=== PATIENT | female | born 1950 | race Caucasian/White ===

== ENCOUNTER 2017-02-17 16:38 | Outpatient (CLI) | payer BC | END 2017-02-17 16:39 | disposition home or self-care (01) | DX: M16.11 Unilateral primary osteoarthritis, right hip (principal) ==

== ENCOUNTER 2017-03-14 08:44 | Outpatient (CLI) | payer BC ==
--- NOTE | 2017-03-17 16:01 | Mammography Report ---
DIGITAL SCREENING MAMMOGRAM: 03/14/2017 CLINICAL INDICATION: A 66-year-old nulliparous patient, for screening. COMPARISON: 11/2015, 11/2013, 08/2012, 01/2010, 11/2008, 10/2007. TECHNIQUE: Routine CC and MLO projections were obtained of the breasts. FINDINGS: The breasts again demonstrate heterogeneously dense fibroglandular parenchyma bilaterally. In the left inner anterior retroareolar breast, there is a possible developing density. Further eval uation with spot compression views and possible ultrasound is recommended. No mammographically suspic ious findings are appreciated in the right breast. IMPRESSION: INCOMPLETE EXAMINATION. RECOMMENDATION: ADDITIONAL EVALUATION OF THE LEFT BREAST ABOVE. BIRADS CATEGORY 0-INCOMPLETE. STANDARD QUALIFYING STATEMENTS 1. This examination was reviewed with the aid of Computer-Aided Detection (CAD). 2. A negative or benign imaging report should not delay biopsy if clinically suspicious findings are present. Consider surgical consultation if warranted. More than 5% of cancers are not identified by i maging. 3. Dense breasts may obscure an underlying neoplasm. JOB #: [id number] EXT JOB #:[id number]
== END 2017-03-14 08:45 | disposition home or self-care (01) ==
LOC: DI 08:44
PROVIDERS: ATTEND Physician Assistant Medical
DX: Z12.31 Encounter for screening mammogram for malignant neoplasm of breast (principal); R92.8 Other abnormal and inconclusive findings on diagnostic imaging of breast
CPT/HCPCS: 77067

== ENCOUNTER 2017-03-26 13:36 | Outpatient (CLI) | payer BC ==
--- NOTE | 2017-03-26 16:51 | Mammography Report ---
DIGITAL DIAGNOSTIC LEFT MAMMOGRAM: 03/26/2017 CLINICAL INDICATION: A 66-year-old nulliparous patient, possible developing density on screening. TECHNIQUE: Left true lateral and spot compression views. COMPARISON: 03/14/2017, 11/20/2015, 11/15/2013, 08/20/2014, 01/17/2010, 11/15/2008, 11/12/2007. The left breast again demonstrates scattered fibroglandular densities. The density in question, in t he left inner anterior breast, dissipates evenly on additional compression. No underlying mass lesio n or architectural distortion is identified. IMPRESSION: NEGATIVE EXAMINATION. RECOMMENDATION: ROUTINE ANNUAL SCREENING UNLESS OTHERWISE CLINICALLY INDICATED. BIRADS CATEGORY: 1, NEGATIVE. STANDARD QUALIFYING STATEMENTS 1. This examination was reviewed with the aid of Computed-Aided Detection (CAD). 2. A negative or benign imaging report should not delay biopsy if clinically suspicious findings are present. Consider surgical consultation if warranted. More than 5% of cancers are not identified b y imaging. 3. Dense breasts may obscure an underlying neoplasm. JOB #: [id number] EXT JOB #:[id number]
== END 2017-03-26 13:37 | disposition home or self-care (01) ==
LOC: DI 13:36
PROVIDERS: ATTEND Physician Assistant Medical
DX: R92.8 Other abnormal and inconclusive findings on diagnostic imaging of breast (principal)

== ENCOUNTER 2017-06-25 10:56 | Outpatient (CLI) | payer BC ==
[2017-06-25 11:23] LABS: BASOPHILS # (AUTO) 0.1 10^3/uL (0.0-0.1); BASOPHILS % (AUTO) 1.1 %; EOSINOPHILS # (AUTO) 0.1 10^3/uL (0.0-0.7); EOSINOPHILS % (AUTO) 1.7 %; HCT - HEMATOCRIT 39.2 % (37.0-47.0); HGB - HEMOGLOBIN 13.7 g/dL (12.0-16.0); LYMPHOCYTES # (AUTO) 1.3 10^3/uL (1.5-3.5); LYMPHOCYTES % (AUTO) 23.1 %; MEAN CORPUSCULAR HEMOGLOBIN 32.2 pg (27.0-31.0); MEAN CORPUSCULAR HGB CONC 34.8 g/dL (32.0-36.0); MEAN CORPUSCULAR VOLUME 92.6 fL (81.0-99.0); MEAN PLATELET VOLUME 8.9 fL (7.9-10.8); MONOCYTES # (AUTO) 0.5 10^3/uL (0.0-1.0); MONOCYTES % (AUTO) 9.2 %; NEUTROPHILS # (AUTO) 3.5 10^3/uL (1.5-6.6); NEUTROPHILS % (AUTO) 64.9 %; RED BLOOD COUNT 4.23 10^6/uL (4.20-5.40); RED CELL DISTRIBUTION WIDTH 13.3 % (12.0-15.0); UNCORRECTED WHITE BLOOD COUNT 5.4 x10^3/uL; WHITE BLOOD COUNT 5.4 x10^3/uL (4.8-10.8)
[2017-06-25 11:35] LABS: ALBUMIN/GLOBULIN RATIO 1.4 (1.0-2.2); BILIRUBIN,TOTAL 0.7 mg/dL (0.2-1.0); CALCIUM 8.9 mg/dL (8.5-10.3); POTASSIUM 3.7 mmol/L (3.5-5.0); TOTAL PROTEIN 7.3 g/dL (6.7-8.2)
--- NOTE | 2017-06-25 13:48 | XRAY Report ---
TWO-VIEW CHEST: 06/25/2017 CLINICAL INDICATION: Cough, heart murmur. FINDINGS: Frontal and lateral views of the chest demonstrate a normal cardiac silhouette. The lungs are clear. No effusion or pneumothorax is present. IMPRESSION: NORMAL CHEST. JOB #: [id number] EXT JOB #:[id number]
== END 2017-06-25 10:57 | disposition home or self-care (01) ==
LOC: LAB 10:56
PROVIDERS: ATTEND Physician Assistant Medical
DX: R05 Cough (principal); R01.1 Cardiac murmur, unspecified; R00.2 Palpitations
CPT/HCPCS: 36415; 71020; 80053; 84443; 84484; 85025; 93306

== ENCOUNTER 2017-11-12 08:06 | Outpatient (CLI) | payer MEDICARE, OTHER ==
--- NOTE | 2017-11-12 12:19 | CT Report ---
DATE OF SERVICE: 11/12/2017 CT OF SINUSES WITHOUT CONTRAST: 11/12/2017 CLINICAL INDICATION: Acute sinusitis, pressure, pain. TECHNIQUE: Axial CT images of the sinuses were obtained without intravenous contrast, following which sagittal and coronal reconstructions were performed. No previous sinus CT is available for comparison. FINDINGS: There is rightward deviation of the nasal septum. The paranasal sinuses are clear. The ostiomeatal units are patent. No osseous destruction is seen. The visualized intraorbital contents are unremarkable. IMPRESSION: RIGHTWARD DEVIATION OF THE NASAL SEPTUM. NO EVIDENCE OF ACUTE OR CHRONIC SINUS DISEASE. In accordance with CT protocol optimization, one or more of the following dose reduction techniques were utilized for this exam: automated exposure control, adjustment of mA and/or KV based on patient size, or use of iterative reconstructive technique. TD: 11/12/2017 13:18
[2017-11-13] MEDS ORDERED: IOPAMIDOL-300 100 ML VIAL IVP ONE (14:25)
== END 2017-11-12 08:07 | disposition home or self-care (01) ==
LOC: DI 08:06
PROVIDERS: ATTEND Physician Assistant Medical
DX: J34.2 Deviated nasal septum (principal)
CPT/HCPCS: 70486

== ENCOUNTER 2017-11-13 07:27 | Outpatient (CLI) | payer MEDICARE, OTHER ==
[2017-11-13 07:46] LABS: CREATININE 0.7 mg/dL (0.4-1.0)
[2017-11-13] MEDS ORDERED: IOPAMIDOL-300 100 ML VIAL ONE (13:36)
--- NOTE | 2017-11-13 16:11 | CT Report ---
DATE OF SERVICE: 11/13/2017 CT BRAIN WITH AND WITHOUT CONTRAST: 11/13/2017 CLINICAL INDICATION: Headache for several weeks. COMPARISON: CT head without contrast 01/11/2007, CT sinuses 11/12/2017. TECHNIQUE: Axial CT images of the brain were obtained prior to and following 80 mL Isovue 300 intravenously. In accordance with CT protocol optimization, one or more of the following dose reduction techniques were utilized for this exam: Automated exposure control, adjustment of mA and/or KV based on patient size, or use of iterative reconstructive technique. FINDINGS: The ventricles and sulci are normal in size, shape and configuration. The basilar cisterns are patent. There is no evidence of hemorrhage, mass effect, or midline shift. No abnormal enhancement is seen. The visualized orbital contents and paranasal sinuses are unremarkable. IMPRESSION: NORMAL CT OF THE BRAIN WITH AND WITHOUT CONTRAST. TD: 11/13/2017 16:10
== END 2017-11-13 07:28 | disposition home or self-care (01) ==
LOC: LAB 07:27 → DI 07:28
PROVIDERS: ATTEND Physician Assistant Medical
DX: R51 Headache (principal); Z79.899 Other long term (current) drug therapy
CPT/HCPCS: 36415; 70470; 82565; 84520; Q9967

== ENCOUNTER 2018-04-29 09:47 | Outpatient (CLI) | payer MEDICARE, OTHER ==
[2018-04-29 10:38] LABS: BASOPHILS # (AUTO) 0.1 10^3/uL (0.0-0.1); BASOPHILS % (AUTO) 1.1 %; EOSINOPHILS # (AUTO) 0.1 10^3/uL (0.0-0.7); LYMPHOCYTES # (AUTO) 1.1 10^3/uL (1.5-3.5); MEAN CORPUSCULAR HEMOGLOBIN 32.9 pg (27.0-31.0); MEAN CORPUSCULAR HGB CONC 34.1 g/dL (32.0-36.0); MEAN CORPUSCULAR VOLUME 96.3 fL (81.0-99.0); MEAN PLATELET VOLUME 8.9 fL (7.9-10.8); MONOCYTES # (AUTO) 0.5 10^3/uL (0.0-1.0); MONOCYTES % (AUTO) 9.2 %; NEUTROPHILS # (AUTO) 3.5 10^3/uL (1.5-6.6); NEUTROPHILS % (AUTO) 66.7 %; PLT - PLATELET COUNT 211 10^3/uL (130-450); RED BLOOD COUNT 4.56 10^6/uL (4.20-5.40); WHITE BLOOD COUNT 5.2 x10^3/uL (4.8-10.8)
[2018-04-29 11:02] LABS: ALBUMIN 3.9 g/dL (3.2-5.5); ALBUMIN/GLOBULIN RATIO 1.2 (1.0-2.2); ALKALINE PHOSPHATASE 81 IU/L (42-121); ALT ALANINE AMINOTRANSFERASE 29 IU/L (10-60); AST ASPARTATE AMINOTRANSFERASE 30 IU/L (10-42); BILIRUBIN,TOTAL 1.1 mg/dL (0.2-1.0); BUN - BLOOD UREA NITROGEN 8 mg/dL (6-20); CALCIUM 8.9 mg/dL (8.5-10.3); CARBON DIOXIDE - CO2 26 mmol/L (21-32); CHLORIDE 102 mmol/L (101-111); CHOL/HDL RATIO 4.1 (<4.4); CHOLESTEROL 258 mg/dL; CREATININE 0.7 mg/dL (0.4-1.0); GFR - MDRD 84 (>89); GLUCOSE 99 mg/dL (70-100); HDL CHOLESTEROL 63 mg/dL; LDL CHOLESTEROL,CALCULATED 176 mg/dL; LDL/HDL RATIO 2.8 (<4.4); SODIUM 137 mmol/L (135-145); TOTAL PROTEIN 7.1 g/dL (6.7-8.2); VLDL CHOLESTEROL 19 mg/dL
[2018-04-30 15:32] LABS: HEPATITIS C ANTIBODY NON-REACTIVE (NON-REACTIVE)
== END 2018-04-29 09:48 | disposition home or self-care (01) ==
LOC: LAB 09:47
PROVIDERS: ATTEND Physician Assistant Medical
DX: Z00.00 Encounter for general adult medical examination without abnormal findings (principal); R19.7 Diarrhea, unspecified; Z79.899 Other long term (current) drug therapy; N39.0 Urinary tract infection, site not specified; Z13.818 Encounter for screening for other digestive system disorders; Z72.89 Other problems related to lifestyle; E03.9 Hypothyroidism, unspecified; E78.2 Mixed hyperlipidemia
CPT/HCPCS: 36415; 80053; 80061; 83721; 84443; 85025; 86803; 87077; 87086; 87181

== ENCOUNTER 2018-05-01 08:00 | Outpatient (CLI) | payer MEDICARE, OTHER | END 2018-05-01 08:01 | disposition home or self-care (01) | LOC: LAB.R 08:00 | PROVIDERS: ATTEND Physician Assistant Medical | DX: R19.7 Diarrhea, unspecified (principal) | CPT/HCPCS: 81599; 82705; 83630; 87045; 87046; 87177; 87209; 87493 ==

== ENCOUNTER 2018-05-12 14:47 | Outpatient (CLI) | payer MEDICARE, OTHER ==
[2018-05-12] MEDS ORDERED: IOPAMIDOL-300 50 ML VIAL ONE (15:06)
[2018-05-12] MEDS ORDERED: IOPAMIDOL-300 100 ML VIAL ONE (15:06)
[2018-05-12] MEDS ORDERED: IOPAMIDOL-300 50 ML VIAL PO ONE (16:59)
[2018-05-12] MEDS ORDERED: IOPAMIDOL-300 100 ML VIAL IVP ONE (16:59)
--- NOTE | 2018-05-13 11:43 | CT Report ---
Procedure Date: 05/12/2018 Accession Number: [id number] / [id number] Procedure: CT - Abdomen/Pelvis W/ CPT Code: FULL RESULT: EXAM: Abdomen/Pelvis W/ DATE: 05/12/2018 4:38 PM CLINICAL HISTORY: DIARRHEA,ACUTE COMPARISON: None. TECHNIQUE: Routine helical CT imaging was performed through the abdomen and pelvis. IV contrast: 100 mL Isovue 300. Enteric contrast: Yes. Reconstructions: Coronal and sagittal. In accordance with CT protocol optimization, one or more of the following dose reduction techniques were utilized for this exam: automated exposure control, adjustment of mA and/or KV based on patient size, or use of iterative reconstructive technique. FINDINGS: Lung Bases: Dependent changes. Liver: Normal. No masses. Gallbladder/Bile Ducts: Status post cholecystectomy. Spleen: Normal. Pancreas: Normal. Adrenal Glands: Normal. Kidneys: Normal. No masses or hydronephrosis. Peritoneal Cavity/Bowel: No free fluid, free air or adenopathy. No masses or acute inflammatory process. The appendix is well visualized and normal. Specifically, there is diverticulosis without evidence of diverticulitis and no focal colonic or small bowel wall thickening to suggest colitis or ileitis. Pelvic Organs: Normal. The bladder and visualized pelvic organs are within normal limits. Vasculature: Atherosclerotic aorta without aneurysm. Bones: No aggressive osseous structures Other: None. IMPRESSION: No acute abnormality in the abdomen or pelvis. RADIA
== END 2018-05-12 14:48 | disposition home or self-care (01) ==
LOC: DI 14:47
PROVIDERS: ATTEND Physician Assistant Medical
DX: R19.7 Diarrhea, unspecified (principal)
CPT/HCPCS: 74177; Q9967

== ENCOUNTER 2018-05-18 08:00 | Outpatient (CLI) | payer MEDICARE, OTHER | END 2018-05-18 08:01 | disposition home or self-care (01) | LOC: LAB.R 08:00 | PROVIDERS: ATTEND Internal Medicine Gastroenterology | DX: R19.7 Diarrhea, unspecified (principal); K90.9 Intestinal malabsorption, unspecified | CPT/HCPCS: 81599; 82710 ==

== ENCOUNTER 2018-11-05 08:00 | Outpatient (CLI) | payer MEDICARE, OTHER ==
[2018-11-05 14:40] LABS: ALBUMIN 4.5 g/dL (3.2-5.5); ALBUMIN/GLOBULIN RATIO 1.4 (1.0-2.2); BILIRUBIN,TOTAL 1.4 mg/dL (0.2-1.0); CALCIUM 9.6 mg/dL (8.5-10.3); CREATININE 0.7 mg/dL (0.4-1.0); TOTAL PROTEIN 7.7 g/dL (6.7-8.2)
[2018-11-05 15:31] LABS: BILIRUBIN,URINE NEGATIVE (NEGATIVE); GLUCOSE, URINE (UA) NEGATIVE (NEGATIVE); KETONES,URINE (UA) NEGATIVE (NEGATIVE); LEUKOCYTE ESTERASE, URINE NEGATIVE (NEGATIVE); NITRITE,URINE NEGATIVE (NEGATIVE); OCCULT BLOOD,URINE NEGATIVE (NEGATIVE); PROTEIN,URINE NEGATIVE (NEGATIVE); UROBILINOGEN,URINE 0.2 (NORMAL) E.U./dL (NORMAL)
[2018-11-05 15:54] LABS: BACTERIA,URINE None Seen /HPF (None Seen); CLARITY,URINE CLEAR (CLEAR); RBC,URINE 0-5 /HPF (0-5); SQUAMOUS EPITHELIAL CELL,UR MOD Squamous (<= Few)
== END 2018-11-05 23:59 | disposition home or self-care (01) ==
LOC: LAB.R 08:00
PROVIDERS: ATTEND Physician Assistant Medical
DX: I10 Essential (primary) hypertension (principal); Z79.899 Other long term (current) drug therapy
CPT/HCPCS: 80053; 81001; 84443; 87086

== ENCOUNTER 2019-01-29 11:49 | Emergency (ER) | payer MEDICARE, OTHER ==
--- NOTE | 2019-01-29 12:18 | ED Physician Documentation ---
PD HPI URI - Stated complaint Stated Complaint: SOA - Chief complaint Chief Complaint: Resp - History obtained from History obtained from: Patient - History of Present Illness Timing - onset: How many weeks ago (3-4) Timing duration: Weeks (3-4) Timing details: Gradual onset, Waxing and waning (She has had runny nose and congestion as well as some coughing and wheezing for 3-4 weeks since the tree started blooming. She does have history of some hayfever. She is also had an increasingly worse cough keeping her up at night. It is productive of slightly of clear to whitish sputum. There is no blood in her sputum. She has not had any fever or chills. That has been increasingly worse over the last few weeks as well.) Similar symptoms before: Has not had sx before (She has had environmental allergies in the past but not to this degree and her cough is the predominant symptom that she has not had in the past.) Recently seen: Clinic (started new BP med Lisinopril 2 months ago. Seen couple weeks ago with cough and congestion and Rx QVar and Albuterol.) Review of Systems Constitutional: denies: Fever, Chills Nose: reports: Congestion, Sinus pressure / pain. denies: Rhinorrhea / runny nose Throat: denies: Sore throat Cardiac: denies: Chest pain / pressure Respiratory: reports: Cough. denies: Dyspnea, Wheezing GI: denies: Abdominal Pain, Nausea, Vomiting, Diarrhea Skin: denies: Rash, Lesions Psychiatric: reports: Insomnia (not insomnia per se but very poor sleep for past 2 weeks due to persistent cough keeping her away or awakening her often.) PD PAST MEDICAL HISTORY - Past Medical History Past Medical History: Yes Cardiovascular: Hypertension Endocrine/Autoimmune: HyPOthyroidism Musculoskeletal: Osteoarthritis - Past Surgical History Past Surgical History: Yes General: Cholecystectomy - Present Medications Home Medications: Ambulatory Orders Medication Instructions Recorded Confirmed Benzonatate [Tessalon Perle] 100 - 200 mg PO TID PRN #30 capsule 01/29/19 Cetirizine [ZyrTEC] 10 mg PO DAILY #30 tablet 01/29/19 Dexamethasone [Decadron] 4 mg PO DAILY #5 tablet 01/29/19 Losartan Potassium 50 mg PO DAILY #30 tablet 01/29/19 guaiFENesin/CODEINE [Robitussin AC] 10 ml PO Q6H PRN #240 ml 01/29/19 - Allergies Allergies/Adverse Reactions: Allergies Allergy/AdvReac Type Severity Reaction Status Date / Time Sulfa (Sulfonamide Allergy Unknown Verified 01/29/19 11:59 Antibiotics) - Social History Does the pt smoke?: No Smoking Status: Former smoker Does the pt drink ETOH?: Yes Does the pt have substance abuse?: No PD ED PE NORMAL - Vitals Vital signs reviewed: Yes - General General: Alert and oriented X 3, Well developed/nourished - HEENT HEENT: Moist mucous membranes, Pharynx benign - Neck Neck: Supple, no meningeal sign, No adenopathy - Cardiac Cardiac: RRR, No murmur - Respiratory Respiratory: Clear bilaterally, Other (repetitive cough without barking nor harsh sounds. It is forceful cough. ) - Abdomen Abdomen: Soft, Non tender - Back Back: No CVA TTP - Derm Derm: Normal color, Warm and dry - Extremities Extremities: No deformity, No tenderness to palpate, Normal ROM s pain, No edema, No calf tenderness / cord - Neuro Neuro: Alert and oriented X 3, No motor deficit, Normal speech Results - Vitals Vitals: Vital Signs - 24 hr 01/29/19 01/29/19 11:53 12:59 Temperature 35.9 C L Heart Rate 72 72 Respiratory 22 18 Rate Blood Pressure 167/87 H 166/67 H O2 Saturation 100 97 Oxygen O2 Source Room air PD MEDICAL DECISION MAKING - ED course Complexity details: considered differential (Allergies for the congesiton. ? if cough is the same, or consider side effect of the Lisinopril that she started a month prior to the cough onset and progression. ), d/w patient Departure - Departure Disposition: 01 Home, Self Care Clinical Impression: Environmental allergies, Persistent cough Condition: Stable Record reviewed to determine appropriate education?: Yes Follow-Up: Pieter Flores MD [Primary Care Provider] - [facility] [Provider Group] Prescriptions: Benzonatate [Tessalon Perle] 100 - 200 mg PO TID PRN #30 capsule PRN Reason: Cough Cetirizine [ZyrTEC] 10 mg PO DAILY #30 tablet Dexamethasone [Decadron] 4 mg PO DAILY #5 tablet guaiFENesin/CODEINE [Robitussin AC] 10 ml PO Q6H PRN #240 ml PRN Reason: Cough Losartan Potassium 50 mg PO DAILY #30 tablet Comments: For your allergy symptoms, I would suggest cetirizine antihistamine daily. I looked up the Zicam and that is not really an antihistamine and is mostly homeopathic. You can still continue it. I would use the Decadron steroid orally for the next 5 days to decrease inflammation through the bronchials. Use your albuterol inhaler 2 puffs 4 times a day and extra times as needed. For the cough, use Tessalon for cough suppression and add codeine cough medicine if needed. I wonder if the cough itself might relate to a side effect of your lisinopril. Discontinue that and change to losartan for blood pressure instead. This is similar blood pressure medicine of a different category with very low side effects like lisinopril. Follow-up with your primary care next week as planned. You could also follow-up with ENT regarding allergy testing. Discharge Date/Time: 01/29/19 13:24
[2019-01-29] MEDS ORDERED: BENZONATATE 100 MG CAPSULE PO STA (12:42)
[2019-01-29] MEDS ORDERED: CHERRY SYRUP 10 ML UDC PO ONE (12:42)
[2019-01-29] MEDS ORDERED: DEXAMETHASONE 10 MG/ML VIAL PO STA (12:42)
[2019-01-29 13:00] VITALS: BP 166/67
== END 2019-01-29 13:24 | disposition home or self-care (01) ==
LOC: ED 11:49
DX: J30.1 Allergic rhinitis due to pollen (principal); I10 Essential (primary) hypertension; Z87.891 Personal history of nicotine dependence
CPT/HCPCS: 99283; A9270

== ENCOUNTER 2019-09-02 08:12 | Outpatient (CLI) | payer MEDICARE, OTHER ==
[2019-09-02 08:35] LABS: BASOPHILS # (AUTO) 0.1 10^3/uL (0.0-0.1); EOSINOPHILS # (AUTO) 0.1 10^3/uL (0.0-0.7); EOSINOPHILS % (AUTO) 2.2 %; HGB - HEMOGLOBIN 14.8 g/dL (12.0-16.0); LYMPHOCYTES # (AUTO) 1.2 10^3/uL (1.5-3.5); LYMPHOCYTES % (AUTO) 25.3 %; MEAN CORPUSCULAR HEMOGLOBIN 34.7 pg (27.0-31.0); MEAN CORPUSCULAR HGB CONC 34.6 g/dL (32.0-36.0); MEAN CORPUSCULAR VOLUME 100.2 fL (81.0-99.0); MEAN PLATELET VOLUME 10.2 fL (7.9-10.8); MONOCYTES # (AUTO) 0.5 10^3/uL (0.0-1.0); NEUTROPHILS % (AUTO) 60.1 %; PLT - PLATELET COUNT 209 10^3/uL (130-450); RED BLOOD COUNT 4.27 10^6/uL (4.20-5.40); WHITE BLOOD COUNT 4.9 x10^3/uL (4.8-10.8)
[2019-09-02 08:50] LABS: ALBUMIN 4.6 g/dL (3.2-5.5); ALBUMIN/GLOBULIN RATIO 1.4 (1.0-2.2); ALKALINE PHOSPHATASE 72 IU/L (42-121); ALT ALANINE AMINOTRANSFERASE 27 IU/L (10-60); AST ASPARTATE AMINOTRANSFERASE 30 IU/L (10-42); BUN - BLOOD UREA NITROGEN 15 mg/dL (6-20); CALCIUM 9.3 mg/dL (8.5-10.3); CARBON DIOXIDE - CO2 28 mmol/L (21-32); CHLORIDE 99 mmol/L (101-111); CHOL/HDL RATIO 3.7 (<4.4); CHOLESTEROL 326 mg/dL; CREATININE 0.8 mg/dL (0.4-1.0); GFR - MDRD 72 (>89); GLUCOSE 103 mg/dL (70-100); HDL CHOLESTEROL 88 mg/dL; LDL CHOLESTEROL,CALCULATED 220 mg/dL; LDL/HDL RATIO 2.5 (<4.4); SODIUM 138 mmol/L (135-145); TOTAL PROTEIN 7.8 g/dL (6.7-8.2); VLDL CHOLESTEROL 18 mg/dL
[2019-09-02 09:06] LABS: HB2 TOTAL 14.9 g/dL; HEMOGLOBIN A1C 0.53 g/dL; HEMOGLOBIN A1C % 5.4 % (4.6-6.2)
[2019-09-02 09:37] LABS: THYROID STIMULATING HORMONE 4.31 uIU/mL (0.34-5.60)
[2019-09-02 09:39] LABS: FREE T4 (FREE THYROXINE) 0.86 ng/dL (0.58-1.64)
== END 2019-09-02 08:13 | disposition home or self-care (01) ==
LOC: LAB 08:12
PROVIDERS: ATTEND Family Medicine
DX: N95.1 Menopausal and female climacteric states (principal); I10 Essential (primary) hypertension; Z79.899 Other long term (current) drug therapy; E03.9 Hypothyroidism, unspecified
CPT/HCPCS: 36415; 80053; 80061; 82670; 83036; 83721; 84439; 84443; 84481; 85025

== ENCOUNTER 2019-09-10 12:30 | Outpatient (CLI) | payer MEDICARE, OTHER ==
--- NOTE | 2019-09-13 08:23 | Mammography Report ---
Reason: ROUTINE MAMMO Procedure Date: 09/10/2019 Accession Number: [id number] / [id number] Procedure: MGN - Screening Mammo Dig Bilat CPT Code: Final Report FULL RESULT: EXAM: Screening Mammo Dig Bilat DATE: 09/10/2019 12:48 PM CLINICAL HISTORY: The patient is an asymptomatic 69-year-old female. Nulliparous. No family history breast cancer. TECHNIQUE: (B) - Bilateral CC and MLO views were obtained. COMPARISON: 03/14/2017, 11/20/2015 and 11/15/2013 PARENCHYMAL PATTERN: (D) - The breasts demonstrate heterogeneously dense fibroglandular parenchyma bilaterally. FINDINGS: The pattern of asymmetry is stable given positional variation. There are no suspicious masses, calcifications, or areas of distortion. IMPRESSION: Negative examination. BI-RADS category 1. RECOMMENDATION: (ANNUAL) - Recommend routine annual screening mammography. BI-RADS CATEGORY: (1) - Negative. STANDARD QUALIFYING STATEMENTS: 1. This examination was not reviewed with the aid of Computer-Aided Detection (CAD). 2. A negative or benign imaging report should not preclude biopsy if clinically suspicious findings are present. 3. Dense breasts may obscure an underlying neoplasm.
== END 2019-09-10 12:31 | disposition home or self-care (01) ==
LOC: DI.N 12:30
PROVIDERS: ATTEND Family Medicine
DX: Z12.31 Encounter for screening mammogram for malignant neoplasm of breast (principal)
CPT/HCPCS: 77067

== ENCOUNTER 2019-12-16 15:46 | Outpatient (CLI) | payer MEDICARE, OTHER ==
[2019-12-16 16:34] LABS: CHOL/HDL RATIO 3.8 (<4.4); CHOLESTEROL 319 mg/dL; HDL CHOLESTEROL 85 mg/dL; LDL CHOLESTEROL,CALCULATED 218 mg/dL; LDL/HDL RATIO 2.6 (<4.4); VLDL CHOLESTEROL 16 mg/dL
== END 2019-12-16 15:47 | disposition home or self-care (01) ==
LOC: LAB 15:46
PROVIDERS: ATTEND Family Medicine
DX: E78.2 Mixed hyperlipidemia (principal)
CPT/HCPCS: 36415; 80061; 83721

== ENCOUNTER 2020-04-10 14:57 | Outpatient (CLI) | payer MEDICARE, OTHER ==
--- NOTE | 2020-04-10 16:03 | XRAY Report ---
PROCEDURE: Cervical Spine w/Flex/Ext INDICATIONS: CERVICALGIA,DORSALGIA TECHNIQUE: 7 views of the cervical spine were acquired. COMPARISON: None. FINDINGS: Bones: No fractures or dislocations to the C7 level. Straightening of the normal lordotic curvature . Diffuse narrowing of the cervical disc spaces, with relative sparing of C2-C3. Scattered multileve l endplate spurring and diffuse facet arthropathy. There is 2-3 mm of retrolisthesis of C3 on C4, C4 on C5, and C5 on C6 with lateral extension view. Th is appears to reduce with neutral and flexion views. On the left, multilevel moderate bony foraminal narrowing at C4-C5, C5-C6 and C6-C7. On the right, there is mild C3-C4 bony foraminal narrowing. Soft tissues: Prevertebral soft tissues are normal in thickness. Scattered carotid atherosclerotic c alcified plaque. IMPRESSION: Multilevel cervical spondylosis and facet arthropathy. Suggestion of motion at the C3-C4, C4-C5 and C5-C6 levels as detailed above with lateral extension an d flexion views raise the possibility of instability. Bilateral bony foraminal stenoses as above. Reviewed by: Cisco Beltrán MD on 04/10/2020 4:01 PM PDT Approved by: Cisco Beltrán MD on 04/10/2020 4:01 PM PDT Station ID: [id number]
--- NOTE | 2020-04-10 16:05 | XRAY Report ---
PROCEDURE: Thoracic Spine 3 View INDICATIONS: CERVICALGIA,DORSALGIA TECHNIQUE: 3 views of the thoracic spine were acquired. COMPARISON: None. FINDINGS: Bones: No fractures or dislocations. No suspicious bony lesions. Discogenic changes. Levoscoliosis centered at the T5 level. Scattered multilevel endplate spurring and diffuse facet arthropathy. Soft tissues: No paravertebral stripe thickening. IMPRESSION: Levoscoliosis of the upper thoracic spine Diffuse thoracic spondylosis and facet disease. No fracture Reviewed by: Cisco Beltrán MD on 04/10/2020 4:03 PM PDT Approved by: Cisco Beltrán MD on 04/10/2020 4:03 PM PDT Station ID: [id number]
== END 2020-04-10 14:58 | disposition home or self-care (01) ==
LOC: DI 14:57
PROVIDERS: ATTEND Family Medicine
DX: M47.812 Spondylosis without myelopathy or radiculopathy, cervical region (principal); M48.02 Spinal stenosis, cervical region; M47.814 Spondylosis without myelopathy or radiculopathy, thoracic region; M41.84 Other forms of scoliosis, thoracic region
CPT/HCPCS: 72052; 72072

== ENCOUNTER 2020-07-03 15:50 | Outpatient (CLI) | payer MEDICARE, OTHER ==
--- NOTE | 2020-07-03 18:00 | MRI Report ---
PROCEDURE: Cervical Spine W/O INDICATIONS: DORSALGIA,CERVICALGIA TECHNIQUE: Noncontrast sagittal T1 spin echo and T2 fast spin echo, sagittal STIR, foraminal oblique sagittal T2 fast spin echo, and axial gradient echo or T2 fast spin echo through the cervical spine. COMPARISON: Correlation is made with the accompanying thoracic spine MRI 07/03/2020. Correlation is m gui with prior cervical spine plain films, 04/10/2020 FINDINGS: Image quality: Motion artifact is noted. Alignment and Curvature: There is overall straightening of the normal cervical lordosis. No signifi cant AP alignment abnormality can be seen. Bone Marrow: Marrow demonstrates normal overall signal. Spinal Cord: Visualized spinal cord has normal size and signal. No cerebellar tonsillar herniation. Paraspinous Soft Tissues: No paravertebral masses. Prevertebral soft tissues are normal in thicknes s. C2-C3: The disc height is well-preserved. There is loss of disc signal seen. Mild disc osteophyte complex is seen. There is a mild central disc protrusion. There is mild to moderate left-sided and no significant right-sided facet hypertrophy seen. There is at least moderate left-sided and mild ri ght-sided neuroforaminal narrowing seen. Mild central canal narrowing is seen. C3-C4: Mild to moderate loss of disc height and disc signal can be seen. Moderate disc osteophyte c omplex is seen, with a central/left disc osteophyte protrusion. Moderate facet hypertrophy is seen. There is moderate to severe bilateral neuroforaminal narrowing seen, left worse than right. Modera te central canal narrowing is seen. Associated mass effect is seen upon the ventral spinal cord. C4-C5: Moderate to severe loss of disc height and disc signal can be seen. Moderate disc osteophyte complex is seen, with a central disc osteophyte protrusion. Uncovertebral joint hypertrophy is seen at this level. Mild to moderate facet hypertrophy is seen. There is moderate to severe bilateral ne uroforaminal narrowing seen, left worse than right. Moderate central canal narrowing is seen. Asso ciated mass effect is seen upon the ventral spinal cord. C5-C6: Moderate to severe loss of disc height and disc signal can be seen. Moderate disc osteophyte complex is seen, which is eccentric to the left. There is a central disc osteophyte protrusion, as on series 701 image 15. Uncovertebral joint hypertrophy is seen at this level. Moderate facet hypert rophy is seen. There is moderate to severe bilateral neuroforaminal narrowing seen, left worse than right. Moderate to severe central canal narrowing is seen. Associated mass effect is seen upon the v entral spinal cord. C6-C7: Moderate to severe loss of disc height and disc signal can be seen. At least moderate disc os teophyte complex is seen, with a mild central disc osteophyte protrusion. Mild to moderate facet hype rtrophy is seen at this level. There is moderate to severe bilateral neuroforaminal narrowing seen, l eft worse than right. Moderate central canal narrowing is seen. Associated mass effect is seen upo n the ventral spinal cord. C7-T1: Mild loss of disc height and disc signal are seen. Mild disc osteophyte complex is seen. M ild facet hypertrophy is seen. Mild bilateral neural foraminal narrowing is seen. No significant central canal narrowing is seen. IMPRESSION: Multiple levels of relatively prominent cervical spine degenerative change are seen, which are overal l most prominent at the C5-C6 level. Reviewed by: Nestor Bowling MD on 07/03/2020 4:59 PM VIKTORIA Approved by: Nestor Bowling MD on 07/03/2020 4:59 PM VIKTORIA Station ID: [id number]
--- NOTE | 2020-07-03 18:04 | MRI Report ---
PROCEDURE: Thoracic Spine W/O INDICATIONS: DORSALGIA,CERVICALGIA TECHNIQUE: Noncontrast sagittal T1 spine echo and T2 fast spin echo, sagittal STIR, axial T1 and T2 fast spin ec ho through the thoracic spine. COMPARISON: Correlation is made with the accompanying cervical spine MRI 07/03/2020. Correlation is a lso made with the prior thoracic spine plain films, 04/10/2020. FINDINGS: Image quality: Motion artifact is noted. Alignment and Curvature: There is accentuated thoracic kyphosis. No significant AP alignment abn ormality can be seen. Bone Marrow: Marrow is of normal overall signal. No acute vertebral body compression fractures. Spinal Cord: Visualized spinal cord is normal in size and signal. Paraspinous Soft Tissues: No paravertebral masses. Miscellaneous: Scattered levels of mild disc space narrowing can be seen, with associated endplate ir regularity. Several levels of bridging anterior osteophytes can be seen, which are more prominent on the right side than on the left. No significant neuroforaminal or central canal narrowing can be seen within the thoracic spine. Portions of the lumbar spine are included on the study and there is a central/right disc extrusion no yohana at the L1-L2 level, as seen on series 901 image 2 and on series 602 image 9. Moderate associated central canal narrowing can be seen. IMPRESSION: Age-appropriate generalized thoracic spine degenerative changes are seen. At the L1-L2 level, there is a central/right disc extrusion seen, with moderate central canal narrowi ng. If it would be helpful for clinical management decision making, please consider a dedicated lumba r spine MRI for further evaluation. Reviewed by: Nestor Bowling MD on 07/03/2020 5:03 PM VIKTORIA Approved by: Nestor Bowling MD on 07/03/2020 5:03 PM VIKTORIA Station ID: [id number]
== END 2020-07-03 15:51 | disposition home or self-care (01) ==
LOC: DI 15:50
PROVIDERS: ATTEND Family Medicine
DX: M50.21 Other cervical disc displacement, high cervical region (principal); M47.812 Spondylosis without myelopathy or radiculopathy, cervical region; M48.02 Spinal stenosis, cervical region; M51.34 Other intervertebral disc degeneration, thoracic region; M47.814 Spondylosis without myelopathy or radiculopathy, thoracic region; M51.26 Other intervertebral disc displacement, lumbar region; M48.061 Spinal stenosis, lumbar region without neurogenic claudication
CPT/HCPCS: 72141; 72146

== ENCOUNTER 2020-11-21 12:28 | Outpatient (CLI) | payer MEDICARE, OTHER ==
--- NOTE | 2020-11-22 12:29 | Mammography Report ---
BILATERAL DIGITAL SCREENING MAMMOGRAM 3D/2D: 11/21/2020 CLINICAL: Routine screening. Comparison is made to exams dated: 09/10/2019 mammogram, 03/26/2017 mammogram, and 03/14/2017 mammogram - [facility]. The tissue of both breasts is heterogeneously dense. This may lower the sensitivity of mammography. No significant masses, calcifications, or other findings are seen in either breast. There has been no significant interval change. IMPRESSION: NEGATIVE There is no mammographic evidence of malignancy. A 1 year screening mammogram is recommended. This exam was interpreted at Station ID: [id number]. NOTE: For mammograms, a report in lay terms will be sent to the patient. Approximately 15% of breast malignancies will not be visualized mammographically. In the management of a palpable breast mass, a negative mammogram must not discourage biopsy of a clinically suspicious lesion. Electronically Signed By: Sarai roland/emily:11/21/2020 17:04:01 ACR BI-RADS Category 1: Negative 3341F PARENCHYMAL PATTERN: (D) - The breast(s) demonstrate(s) heterogeneously dense fibroglandular ivanna hunt. BI-RADS CATEGORY: (1) - 1 RECOMMENDATION: (ANNUAL) - Recommend routine annual screening mammography. [id number] 1 year screening LATERALITY: (B)
== END 2020-11-21 12:29 | disposition home or self-care (01) ==
LOC: DI.N 12:28
DX: Z12.31 Encounter for screening mammogram for malignant neoplasm of breast (principal)

== ENCOUNTER 2021-01-01 10:54 | Outpatient (CLI) | payer MEDICARE, OTHER ==
[2021-01-01] MEDS ORDERED: IOPAMIDOL-300 50 ML VIAL ONE (11:29)
[2021-01-01] MEDS ORDERED: IOVERSOL 320 100 ML VIAL IVP ONE ×2 (11:29→13:30)
[2021-01-01 11:30] LABS: BASOPHILS % (AUTO) 0.6 %; EOSINOPHILS # (AUTO) 0.1 10^3/uL (0.0-0.7); EOSINOPHILS % (AUTO) 1.9 %; HCT - HEMATOCRIT 46.3 % (37.0-47.0); HGB - HEMOGLOBIN 15.6 g/dL (12.0-16.0); LYMPHOCYTES # (AUTO) 1.2 10^3/uL (1.5-3.5); LYMPHOCYTES % (AUTO) 17.5 %; MEAN CORPUSCULAR HEMOGLOBIN 33.5 pg (27.0-31.0); MEAN CORPUSCULAR HGB CONC 33.7 g/dL (32.0-36.0); MEAN CORPUSCULAR VOLUME 99.6 fL (81.0-99.0); MEAN PLATELET VOLUME 10.9 fL (7.9-10.8); MONOCYTES # (AUTO) 0.6 10^3/uL (0.0-1.0); MONOCYTES % (AUTO) 9.3 %; NEUTROPHILS # (AUTO) 4.8 10^3/uL (1.5-6.6); NEUTROPHILS % (AUTO) 70.4 %; PLT - PLATELET COUNT 205 10^3/uL (130-450); RED BLOOD COUNT 4.65 10^6/uL (4.20-5.40); RED CELL DISTRIBUTION WIDTH 11.8 % (12.0-15.0); WHITE BLOOD COUNT 6.9 x10^3/uL (4.8-10.8)
[2021-01-01 11:41] LABS: ALBUMIN 4.9 g/dL (3.2-5.5); ALBUMIN/GLOBULIN RATIO 1.5 (1.0-2.2); BILIRUBIN,TOTAL 1.3 mg/dL (0.2-1.0); CALCIUM 9.5 mg/dL (8.5-10.3); CREATININE 0.7 mg/dL (0.4-1.0); TOTAL PROTEIN 8.1 g/dL (6.7-8.2)
[2021-01-01 12:10] LABS: THYROID STIMULATING HORMONE 2.78 uIU/mL (0.34-5.60)
--- NOTE | 2021-01-01 12:53 | CT Report ---
PROCEDURE: Abdomen/Pelvis W INDICATIONS: DIARRHEA, IBS CONTRAST: IV CONTRAST: Optiray 320 ml: 100 PO CONTRAST: Isovue 300 ml50 TECHNIQUE: After the administration of intravenous and oral contrast, 5 mm thick sections acquired from the diap hragms to the symphysis. 5 mm thick coronal and sagittal reformats were acquired. For radiation dos e reduction, the following was used: automated exposure control, adjustment of mA and/or kV accordin g to patient size. COMPARISON: 05/12/2018 FINDINGS: Image quality: Excellent. ABDOMEN: Lung bases: Partially calcified 1.3 cm nodule in the right lower lobe is unchanged from 05/12/2018, st atistically benign. Solid organs: Liver and spleen are normal in size and enhancement. Gallbladder has been removed. B iliary system is non dilated. Pancreas enhances normally. No adrenal nodules. Kidneys demonstrate normal size and enhancement, without hydronephrosis. Peritoneum and bowel: Sigmoid diverticulosis. No findings of diverticulitis. Bowel loops demonstrate normal wall thickness and caliber. No free fluid or air. Nodes and vessels: No retroperitoneal or mesenteric adenopathy by size criteria. Aorta and inferior vena cava are normal in size. Miscellaneous: No ventral hernias. PELVIS: Genitourinary: Bladder wall thickness is normal. Miscellaneous: No inguinal hernias or adenopathy. Bones: No suspicious bony lesions. No vertebral body compression fractures. IMPRESSION: No acute finding or otherwise significant abnormality to explain symptoms. Reviewed by: Nehemiah Reynaga MD on 01/01/2021 12:52 PM PDT Approved by: Nehemiah Reynaga MD on 01/01/2021 12:52 PM PDT Station ID: [id number]
[2021-01-01] MEDS ORDERED: IOPAMIDOL-300 50 ML VIAL PO ONE (13:30)
== END 2021-01-01 10:55 | disposition home or self-care (01) ==
LOC: LAB 10:54 → DI 10:55
PROVIDERS: ATTEND Family Medicine
DX: K58.0 Irritable bowel syndrome with diarrhea (principal); I10 Essential (primary) hypertension
CPT/HCPCS: 36415; 74177; 80053; 82533; 83835; 84443; 85025; Q9967

== ENCOUNTER 2021-01-09 10:48 | Outpatient (CLI) | payer MEDICARE, OTHER | END 2021-01-09 10:49 | disposition home or self-care (01) | LOC: DI 10:48 | PROVIDERS: ATTEND Family Medicine | DX: I35.8 Other nonrheumatic aortic valve disorders (principal); I27.20 Pulmonary hypertension, unspecified; I11.9 Hypertensive heart disease without heart failure | CPT/HCPCS: 93306 ==

== ENCOUNTER 2021-02-27 08:00 | Outpatient (CLI) | payer MEDICARE, OTHER ==
[2021-02-27 18:27] LABS: BUN - BLOOD UREA NITROGEN 13 mg/dL (6-20); CALCIUM 9.6 mg/dL (8.5-10.3); CARBON DIOXIDE - CO2 28 mmol/L (21-32); CHLORIDE 99 mmol/L (101-111); CHOL/HDL RATIO 3.5 (<4.4); CHOLESTEROL 321 mg/dL; CREATININE 0.7 mg/dL (0.4-1.0); GFR - MDRD 83 (>89); GLUCOSE 95 mg/dL (70-100); HDL CHOLESTEROL 91 mg/dL; LDL CHOLESTEROL,CALCULATED 205 mg/dL; LDL/HDL RATIO 2.3 (<4.4); POTASSIUM 4.2 mmol/L (3.5-5.0); SODIUM 138 mmol/L (135-145); TRIGLYCERIDES 123 mg/dL; VLDL CHOLESTEROL 25 mg/dL
[2021-02-27 20:16] LABS: ESTIMATED AVERAGE GLUCOSE 100 mg/dL (70-100); HEMOGLOBIN A1c% 5.1 % (4.27-6.07)
== END 2021-02-27 23:59 | disposition home or self-care (01) ==
LOC: LAB.WCP 08:00
PROVIDERS: ATTEND Family Medicine
DX: E78.2 Mixed hyperlipidemia (principal)
CPT/HCPCS: 36415; 80048; 80061; 83036; 83721

== ENCOUNTER 2021-03-19 14:24 | Outpatient (CLI) | payer MEDICARE, OTHER | END 2021-03-19 14:25 | disposition home or self-care (01) | LOC: LAB 14:24 | PROVIDERS: ATTEND Internal Medicine Cardiovascular Disease | DX: R63.5 Abnormal weight gain (principal) | CPT/HCPCS: 36415; 83880 ==

== ENCOUNTER 2021-03-28 10:07 | Outpatient (CLI) | payer MEDICARE, OTHER | END 2021-03-28 10:08 | disposition critical access hospital (66) | LOC: EMS 10:07 | DX: R06.00 Dyspnea, unspecified (principal); F41.9 Anxiety disorder, unspecified | CPT/HCPCS: A0425; A0429 ==

== ENCOUNTER 2021-03-28 10:17 | Emergency (ER) | payer MEDICARE, OTHER ==
[2021-03-28 10:57] LABS: BASOPHILS # (AUTO) 0.1 10^3/uL (0.0-0.1); BASOPHILS % (AUTO) 0.8 %; EOSINOPHILS # (AUTO) 0.1 10^3/uL (0.0-0.7); EOSINOPHILS % (AUTO) 1.2 %; HCT - HEMATOCRIT 40.7 % (37.0-47.0); LYMPHOCYTES % (AUTO) 16.8 %; MEAN CORPUSCULAR HEMOGLOBIN 34.1 pg (27.0-31.0); MEAN CORPUSCULAR HGB CONC 34.4 g/dL (32.0-36.0); MEAN CORPUSCULAR VOLUME 99.3 fL (81.0-99.0); MEAN PLATELET VOLUME 10.4 fL (7.9-10.8); MONOCYTES # (AUTO) 0.7 10^3/uL (0.0-1.0); MONOCYTES % (AUTO) 12.1 %; NEUTROPHILS # (AUTO) 4.1 10^3/uL (1.5-6.6); NEUTROPHILS % (AUTO) 68.6 %; PLT - PLATELET COUNT 204 10^3/uL (130-450); RED CELL DISTRIBUTION WIDTH 12.3 % (12.0-15.0)
--- NOTE | 2021-03-28 10:59 | ED Physician Documentation ---
PD HPI CHEST PAIN - Stated complaint Stated Complaint: WEAKNESS - Chief complaint Chief Complaint: Cardiac - History obtained from History obtained from: Patient - History of Present Illness Timing - onset: Today (few hours ago, with fast heart rate but also having chest pressure/ lightheaded feeling, more than prior episodes.) Timing - onset during: Rest, Light activity Timing - duration: Hours Timing - details: Gradual onset, Still present (has had elevated heart rate with feeling of weakness/lightheaded episodically for hours at a time (sometimes shorter) over several weeks/month. Seen by Cardiology, Dr Hernadez yesterday. Rx Metoprolol 25 mg BID and had ZioPatch placed. Was feeling tired from travel across [facility] and such yesterday.) Quality: Tightness Location: Substernal, Left chest Improved by: No: Rest Associated symptoms: Feeling faint / dizzy, General Weakness, Palpitations. No: Shortness of air, Nausea Similar symptoms before: No diagnosis (work up in progress, just saw Cardiologi ) Recently seen: Clinic (yesterday in Cardiology clinic) Review of Systems Constitutional: denies: Fever Nose: denies: Rhinorrhea / runny nose, Congestion Throat: denies: Sore throat Cardiac: reports: Chest pain / pressure, Palpitations. denies: Pedal edema Respiratory: denies: Cough, Wheezing GI: denies: Abdominal Pain, Vomiting Musculoskeletal: denies: Extremity swelling Neurologic: denies: Near syncope, Syncope, Altered mental status Endocrine: denies: Weight loss, Weight gain PD PAST MEDICAL HISTORY - Past Medical History Past Medical History: Yes Cardiovascular: Hypertension, High cholesterol Respiratory: None Neuro: None Endocrine/Autoimmune: HyPOthyroidism GI: None Psych: Anxiety Musculoskeletal: Osteoarthritis - Past Surgical History Past Surgical History: Yes General: Cholecystectomy - Present Medications Home Medications: Ambulatory Orders Medication Instructions Recorded Confirmed Benzonatate [Tessalon Perle] 100 - 200 mg PO TID PRN #30 capsule 01/29/19 Cetirizine [ZyrTEC] 10 mg PO DAILY #30 tablet 01/29/19 Losartan Potassium 50 mg PO DAILY #30 tablet 01/29/19 dexAMETHasone [Decadron] 4 mg PO DAILY #5 tablet 01/29/19 guaiFENesin/CODEINE [Robitussin AC] 10 ml PO Q6H PRN #240 ml 01/29/19 - Allergies Allergies/Adverse Reactions: Allergies Allergy/AdvReac Type Severity Reaction Status Date / Time Sulfa (Sulfonamide Allergy Unknown Verified 03/28/21 10:32 Antibiotics) - Social History Does the pt smoke?: No Smoking Status: Never smoker Does the pt drink ETOH?: Yes Does the pt have substance abuse?: No - Immunizations Immunizations are current?: Yes - POLST Patient has POLST: No PD ED PE NORMAL - Vitals Vital signs reviewed: Yes (HR 125 and steady, but does fluctuate to 110 with deep breath hold) - General General: Alert and oriented X 3, No acute distress, Well developed/nourished - HEENT HEENT: Pharynx benign - Neck Neck: Supple, no meningeal sign, No adenopathy, Thyroid normal - Cardiac Cardiac: No: RRR (regular but tachycardic 125. No noted flutter waves. ) - Respiratory Respiratory: Clear bilaterally - Abdomen Abdomen: Soft, Non tender - Derm Derm: Normal color, Warm and dry - Extremities Extremities: No tenderness to palpate, No edema, No calf tenderness / cord - Neuro Neuro: Alert and oriented X 3, No motor deficit, Normal speech Results - Vitals Vitals: Oxygen O2 Source Room air - EKG (time done) 10:20 Rate: Rate (enter#) (121) Rhythm: Sinus tachycardia [place]: Normal Intervals: Normal CT QRS: Normal Ischemia: Normal ST segments. No: ST elevation c/w ischemia, ST depression, T wave inversion - Labs Labs: Laboratory Tests 03/28/21 03/28/21 03/28/21 10:55 10:55 10:55 WBC 6.0 RBC 4.10 L Hgb 14.0 Hct 40.7 MCV 99.3 H MCH 34.1 H MCHC 34.4 RDW 12.3 Plt Count 204 MPV 10.4 Neut # (Auto) 4.1 Lymph # (Auto) 1.0 L [place] # (Auto) 0.7 Eos # (Auto) 0.1 Baso # (Auto) 0.1 Absolute Nucleated RBC 0.00 Nucleated RBC % 0.0 Sodium 137 Potassium 3.7 Chloride 99 L Carbon Dioxide 24 Anion Gap 14.0 H BUN 14 Creatinine 0.7 Estimated GFR (MDRD) 83 L Glucose 103 H Calcium 9.6 Magnesium Total Bilirubin 0.8 AST 25 ALT 21 Alkaline Phosphatase 89 Troponin I High Sens 9.4 Total Protein 7.6 Albumin 4.6 Globulin 3.0 Albumin/Globulin Ratio 1.5 Lipase 61 H TSH 03/28/21 03/28/21 10:55 10:55 WBC RBC Hgb Hct MCV MCH MCHC RDW Plt Count MPV Neut # (Auto) Lymph # (Auto) [place] # (Auto) Eos # (Auto) Baso # (Auto) Absolute Nucleated RBC Nucleated RBC % Sodium Potassium Chloride Carbon Dioxide Anion Gap BUN Creatinine Estimated GFR (MDRD) Glucose Calcium Magnesium 2.0 Total Bilirubin AST ALT Alkaline Phosphatase Troponin I High Sens Total Protein Albumin Globulin Albumin/Globulin Ratio Lipase TSH 1.52 - Rads (name of study) chest xray Radiology: Prelim report reviewed (mild increased vascularity suggestive of edema. ), See rad report PD MEDICAL DECISION MAKING - ED course Complexity details: reviewed results (has sinus tachycardia and does not appear to be flutter (variable with activity and slows with Metoprolol). ), re- evaluated patient (HR improved and still appears NSR. She has had this in the past and BP is adequate, in fact a bit elevated initially and still 139 systolic. So seems stable for discharge. ), considered differential (has had episodes of fast heart rate to 120-130s in the past. Not gotten on ECGs. Seen Dr. Hernadez yesterday and has ZioPatch placed and was Rx Metoprolol 25 mg BID, with the Rx at the pharmacy right now to be ppicked up. ), d/w patient Departure - Departure Disposition: 01 Home, Self Care Clinical Impression: PAT (paroxysmal atrial tachycardia) Dyspnea Qualifiers: Dyspnea type: dyspnea on exertion Qualified Code(s): R06.00 - Dyspnea, unspecified Condition: Stable Record reviewed to determine appropriate education?: Yes Instructions: ED Dysrhythmia Unspecified Follow-Up: Pieter Flores MD [Primary Care Provider] - Saloni Hernadez MD [Provider Admit Priv/Credential] - Comments: Start your new metoprolol as prescribed by your cycle counter. You are given a dose here. Start with tonight's dose and then continue with the 25 mg twice daily as planned. Other medicines as usual. Recheck if not improving well over the next couple of days. Your fast heart rate look to be a regular rhythm here called PAT and did not appear to be atrial flutter or fibrillation. Dr. Saba brown will be able to interpret it off the Zio patch as well. Discharge Date/Time: 03/28/21 13:59
[2021-03-28 11:17] LABS: ALBUMIN 4.6 g/dL (3.2-5.5); ALBUMIN/GLOBULIN RATIO 1.5 (1.0-2.2); BILIRUBIN,TOTAL 0.8 mg/dL (0.2-1.0); CALCIUM 9.6 mg/dL (8.5-10.3); CREATININE 0.7 mg/dL (0.4-1.0); POTASSIUM 3.7 mmol/L (3.5-5.0); TOTAL PROTEIN 7.6 g/dL (6.7-8.2)
[2021-03-28] MEDS ORDERED: METOPROLOL 5 MG/5 ML VIAL IVP STA ×2 (11:20→12:29)
--- NOTE | 2021-03-28 11:25 | XRAY Report ---
PROCEDURE: Chest 1 View X-Ray INDICATIONS: Chest pain TECHNIQUE: One view of the chest was acquired. COMPARISON: Chest x-ray 05/11/2020 FINDINGS: Surgical changes and devices: Where the pacer is noted. Lungs and pleura: No pleural effusions or pneumothorax. Mild appearance of increased pulmonary vascu larity. Mediastinum: Mediastinal contours appear normal. Heart size is enlarged. Bones and chest wall: No suspicious bony lesions. Overlying soft tissues appear unremarkable. IMPRESSION: Mild increased vascularity suggestive of edema. Reviewed by: Noris Bowers MD on 03/28/2021 11:24 AM PDT Approved by: Noris Bowers MD on 03/28/2021 11:24 AM PDT Station ID: [id number]
[2021-03-28] MEDS ORDERED: METOPROLOL SUCCINATE 25 MG TABLET PO STA (12:29)
[2021-03-28 13:37] VITALS: BP 137/76
== END 2021-03-28 13:59 | disposition home or self-care (01) ==
LOC: EDUNIT# → ED 10:17
DX: I47.1 Supraventricular tachycardia (principal); I10 Essential (primary) hypertension; R06.09 Other forms of dyspnea
CPT/HCPCS: 36415; 71045; 80053; 83690; 83735; 84443; 84484; 85025; 93005; 96374; 96376; 99284; A9270

== ENCOUNTER 2021-04-01 17:18 | Emergency (ER) | payer MEDICARE, OTHER ==
[2021-04-01 18:29] LABS: BASOPHILS % (AUTO) 0.5 %; EOSINOPHILS # (AUTO) 0.1 10^3/uL (0.0-0.7); EOSINOPHILS % (AUTO) 2.1 %; HCT - HEMATOCRIT 40.1 % (37.0-47.0); HGB - HEMOGLOBIN 13.4 g/dL (12.0-16.0); LYMPHOCYTES # (AUTO) 0.2 10^3/uL (1.5-3.5); LYMPHOCYTES % (AUTO) 3.8 %; MEAN CORPUSCULAR HEMOGLOBIN 33.2 pg (27.0-31.0); MEAN CORPUSCULAR HGB CONC 33.4 g/dL (32.0-36.0); MEAN CORPUSCULAR VOLUME 99.3 fL (81.0-99.0); MEAN PLATELET VOLUME 10.3 fL (7.9-10.8); MONOCYTES # (AUTO) 0.4 10^3/uL (0.0-1.0); MONOCYTES % (AUTO) 8.8 %; NEUTROPHILS # (AUTO) 3.5 10^3/uL (1.5-6.6); NEUTROPHILS % (AUTO) 84.3 %; PLT - PLATELET COUNT 157 10^3/uL (130-450); RED BLOOD COUNT 4.04 10^6/uL (4.20-5.40); WHITE BLOOD COUNT 4.2 x10^3/uL (4.8-10.8)
[2021-04-01 18:41] LABS: ALBUMIN 4.2 g/dL (3.2-5.5); ALBUMIN/GLOBULIN RATIO 1.4 (1.0-2.2); BILIRUBIN,TOTAL 1.2 mg/dL (0.2-1.0); CREATININE 0.8 mg/dL (0.4-1.0); POTASSIUM 3.3 mmol/L (3.5-5.0); TOTAL PROTEIN 7.3 g/dL (6.7-8.2)
--- NOTE | 2021-04-01 18:43 | XRAY Report ---
PROCEDURE: Chest 1 View X-Ray INDICATIONS: Chest Pain TECHNIQUE: One view of the chest was acquired. COMPARISON: 03/28/2021 FINDINGS: Surgical changes and devices: Left-sided cardiac device is unchanged in positioning. Lungs and pleura: Interval decrease in conspicuity of diffuse interstitial prominence and slight imp rovement in increased pulmonary vascularity/congestion. No focal consolidation. No pleural effusions or pneumothorax. Mediastinum: Mediastinal contours appear stable. Heart size is enlarged. Bones and chest wall: No suspicious bony lesions. Overlying soft tissues appear unremarkable. IMPRESSION: Cardiomegaly with interval improvement in appearance of pulmonary edema/CHF. No focal airspace diseas e. Reviewed by: Lusi Oliveira MD on 04/01/2021 6:41 PM PDT Approved by: Luis Oliveira MD on 04/01/2021 6:41 PM PDT Station ID: [id number]
[2021-04-01] MEDS ORDERED: SODIUM CHLORIDE 0.9% 1,000 ML IV STA (19:34)
[2021-04-01] MEDS ORDERED: ONDANSETRON 4 MG/2 ML VIAL IVP STA (19:34)
[2021-04-01] MEDS ORDERED: KETOROLAC 30 MG/ML VIAL IVP STA (19:34)
[2021-04-01] MEDS ORDERED: HYDROmorphone 0.5 MG/0.5 ML SYRINGE IVP STA (19:35)
[2021-04-01] MEDS ORDERED: ACETAMINOPHEN 325 MG TABLET PO STA (19:36)
--- NOTE | 2021-04-01 19:39 | ED Physician Documentation ---
History of Present Illness - Stated complaint Stated Complaint: PARISI,CHILLS,NAUSEA,VOMITING - Chief complaint Chief Complaint: Cardiac - History obtained from History obtained from: Patient - Additonal information Additional information: Patient comes emergency department chief complaint of headache, nausea, vomiting, chills, and substernal pressure that started this morning. Patient states she felt fine yesterday. No cough or shortness of breath today. No radiation of the pressure. Patient states she was able to keep her blood pressure medication down this morning, but did not try taking her thyroid medication because she was so nauseated. Patient did not vomit until this afternoon, just before coming to the emergency department. She states she vomited one more time after getting here and has had no further vomiting since. No diarrhea. She was constipated a couple of days ago but that has improved. Patient states that she does not have any history of coronary artery disease but does have a history of hypertension. Patient has also had tachycardia for some weeks and was started on metoprolol for this about a week ago. She states that her heart rate and blood pressure had improved, but that her doctor decided to have her wear as you monitor to further evaluate her underlying rhythm. Patient states she has noticed that her heart rate was back up today. No dysuria. No abdominal pain per se, the patient states her abdomen "just does not feel right". She has had a cholecystectomy and has no history of liver problems. No back pain. Patient denies any sick contacts, and states she has not been anywhere. Review of Systems Ten Systems: 10 systems reviewed and negative Constitutional: reports: Chills Eyes: reports: Reviewed and negative Ears: reports: Reviewed and negative Nose: reports: Reviewed and negative Throat: reports: Reviewed and negative Cardiac: reports: Chest pain / pressure, Palpitations Respiratory: reports: Reviewed and negative. denies: Dyspnea, Cough GI: reports: Nausea, Vomiting, Constipation : reports: Reviewed and negative Skin: reports: Reviewed and negative Musculoskeletal: denies: Extremity pain, Extremity swelling Neurologic: reports: Headache Psychiatric: reports: Reviewed and negative Endocrine: reports: Reviewed and negative Immunocompromised: reports: Reviewed and negative PD PAST MEDICAL HISTORY - Past Medical History Past Medical History: Yes Cardiovascular: Hypertension, High cholesterol Respiratory: None Neuro: None Endocrine/Autoimmune: HyPOthyroidism GI: None Psych: Anxiety Musculoskeletal: Osteoarthritis - Past Surgical History Past Surgical History: Yes General: Cholecystectomy - Present Medications Home Medications: Ambulatory Orders Medication Instructions Recorded Confirmed Benzonatate [Tessalon Perle] 100 - 200 mg PO TID PRN #30 capsule 01/29/19 Cetirizine [ZyrTEC] 10 mg PO DAILY #30 tablet 01/29/19 Losartan Potassium 50 mg PO DAILY #30 tablet 01/29/19 dexAMETHasone [Decadron] 4 mg PO DAILY #5 tablet 01/29/19 guaiFENesin/CODEINE [Robitussin AC] 10 ml PO Q6H PRN #240 ml 01/29/19 Ondansetron Odt [Zofran] 4 mg TL Q6H PRN #10 tablet 04/01/21 - Allergies Allergies/Adverse Reactions: Allergies Allergy/AdvReac Type Severity Reaction Status Date / Time Sulfa (Sulfonamide Allergy Unknown Verified 04/01/21 17:35 Antibiotics) - Social History Does the pt smoke?: No Smoking Status: Never smoker Does the pt drink ETOH?: Yes Does the pt have substance abuse?: No - Immunizations Immunizations are current?: Yes - POLST Patient has POLST: No PD ED PE NORMAL - Vitals Vital signs reviewed: Yes - General General: Alert and oriented X 3, No acute distress, Well developed/nourished - HEENT HEENT: Atraumatic, PERRL, EOMI, Moist mucous membranes - Neck Neck: Supple, no meningeal sign - Cardiac Cardiac: No murmur, Strong equal pulses, Other (Tachycardic, regular rhythm) - Respiratory Respiratory: No respiratory distress, Clear bilaterally - Abdomen Abdomen: Soft, Non distended, Other (Mild, diffuse discomfort with palpation) - Derm Derm: Normal color, No rash, Other (Hot, dry) - Extremities Extremities: No deformity, No edema, No calf tenderness / cord - Neuro Neuro: Alert and oriented X 3, 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, No motor deficit, No sensory deficit, Normal speech - Psych Psych: Normal mood, Normal affect Results - Vitals Vitals: Vital Signs - 24 hr 04/01/21 04/01/21 04/01/21 17:27 17:51 19:33 Temperature 37.3 C 37.3 C 38.0 C H Heart Rate 122 H 122 H Respiratory 18 18 Rate Blood Pressure 159/79 H 159/79 H O2 Saturation 97 97 04/01/21 04/01/2121 19:34 20:52 20:53 Temperature Heart Rate 116 H 110 H Respiratory 21 19 Rate Blood Pressure 148/82 H 142/74 H O2 Saturation 93 89 L 95 04/01/21 04/01/21 21:38 22:09 Temperature 37.5 C Heart Rate 88 Respiratory 20 Rate Blood Pressure 150/80 H O2 Saturation 94 Oxygen O2 Source Room air - Labs Labs: Laboratory Tests 04/01/21 04/01/21 04/01/21 18:23 18:23 18:23 WBC 4.2 L RBC 4.04 L Hgb 13.4 Hct 40.1 MCV 99.3 H MCH 33.2 H MCHC 33.4 RDW 12.0 Plt Count 157 MPV 10.3 Neut # (Auto) 3.5 Lymph # (Auto) 0.2 L [place] # (Auto) 0.4 Eos # (Auto) 0.1 Baso # (Auto) 0.0 Absolute Nucleated RBC 0.00 Nucleated RBC % 0.0 Sodium 135 Potassium 3.3 L Chloride 101 Carbon Dioxide 23 Anion Gap 11.0 BUN 8 Creatinine 0.8 Estimated GFR (MDRD) 71 L Glucose 113 H Calcium 9.0 Total Bilirubin 1.2 H AST 171 H ALT 92 H Alkaline Phosphatase 100 Troponin I High Sens 12.4 Total Protein 7.3 Albumin 4.2 Globulin 3.1 Albumin/Globulin Ratio 1.4 Lipase 30 Urine Color Urine Clarity Urine pH Ur Specific [place] Urine Protein Urine Glucose (UA) Urine Ketones Urine Occult Blood Urine Nitrite Urine Bilirubin Urine Urobilinogen Ur Leukocyte Esterase Ur Microscopic Review Urine Culture Comments Nasal Adenovirus (PCR) Nasal B. parapertussis DNA (PCR) Nasal Coronavir 229E PCR Nasal Coronavir HKU1 PCR Nasal Coronavir NL63 PCR Nasal Coronavir OC43 PCR Nasal Enterovir/Rhinovir PCR Nasal Influenza B PCR Nasal Influenza A PCR Nasal Parainfluen 1 PCR Nasal Parainfluen 2 PCR Nasal Parainfluen 3 PCR Nasal Parainfluen 4 PCR Nasal RSV (PCR) Nasal B.pertussis DNA PCR Nasal C.pneumoniae (PCR) [place] Human Metapneumo PCR Nasal M.pneumoniae (PCR) Nasal SARS-CoV-2 (PCR) 04/01/21 04/01/21 19:45 19:58 WBC RBC Hgb Hct MCV MCH MCHC RDW Plt Count MPV Neut # (Auto) Lymph # (Auto) [place] # (Auto) Eos # (Auto) Baso # (Auto) Absolute Nucleated RBC Nucleated RBC % Sodium Potassium Chloride Carbon Dioxide Anion Gap BUN Creatinine Estimated GFR (MDRD) Glucose Calcium Total Bilirubin AST ALT Alkaline Phosphatase Troponin I High Sens Total Protein Albumin Globulin Albumin/Globulin Ratio Lipase Urine Color YELLOW Urine Clarity CLEAR Urine pH 8.0 H Ur Specific [place] 1.020 Urine Protein NEGATIVE Urine Glucose (UA) NEGATIVE Urine Ketones NEGATIVE Urine Occult Blood NEGATIVE Urine Nitrite NEGATIVE Urine Bilirubin NEGATIVE Urine Urobilinogen 0.2 (NORMAL) Ur Leukocyte Esterase NEGATIVE Ur Microscopic Review NOT INDICATED Urine Culture Comments NOT INDICATED Nasal Adenovirus (PCR) NOT DETECTED Nasal B. parapertussis DNA (PCR) NOT DETECTED Nasal Coronavir 229E PCR NOT DETECTED Nasal Coronavir HKU1 PCR NOT DETECTED Nasal Coronavir NL63 PCR NOT DETECTED Nasal Coronavir OC43 PCR NOT DETECTED Nasal Enterovir/Rhinovir PCR NOT DETECTED Nasal Influenza B PCR NOT DETECTED Nasal Influenza A PCR NOT DETECTED Nasal Parainfluen 1 PCR NOT DETECTED Nasal Parainfluen 2 PCR NOT DETECTED Nasal Parainfluen 3 PCR NOT DETECTED Nasal Parainfluen 4 PCR NOT DETECTED Nasal RSV (PCR) NOT DETECTED Nasal B.pertussis DNA PCR NOT DETECTED Nasal C.pneumoniae (PCR) NOT DETECTED [place] Human Metapneumo PCR NOT DETECTED Nasal M.pneumoniae (PCR) NOT DETECTED Nasal SARS-CoV-2 (PCR) NOT DETECTED - Rads (name of study) CXR Radiology: Final report received, EMP read indepedently, See rad report (neg) CT abd/pelvis Radiology: Final report received, EMP read indepedently, See rad report (nad) PD MEDICAL DECISION MAKING - ED course Complexity details: reviewed results, re-evaluated patient, considered differential, d/w patient ED course: Patient was found to be tachycardic in the 1 teens to about 120 during my examination. She felt hot and I suspected that she was running a fever. Had her temperature remeasured and was found to be 38 Celsius. Patient was treated symptomatically with IV fluids, Zofran, Toradol, and 1/2 mg of Dilaudid. She was worked up with laboratory studies, which showed moderate elevations of LFTs and mild elevation of bilirubin. Chest x-ray showed cardiomegaly but no evidence of acute CHF. Urinalysis and CT scan of the abdomen and pelvis, as well as respiratory PCR were also ordered. The patient reported feeling better after receiving IV fluids and antipyretics. She also reported that the pain and nausea medications have been helpful, as well. Urinalysis was unremarkable, as was CT of the abdomen and pelvis. Respiratory PCR was negative. Patient was overall found to be feeling much better on reevaluation. I did not find evidence of a serious infection and did not feel the patient at this point met criteria for inpatient stay. Have ordered blood cultures, and have advised the patient that she will be notified if the preliminary result comes back positive. We have discussed home management of the symptoms, as well as the usual indications for return. Departure - Departure Disposition: Home, Self Care Clinical Impression: Febrile illness, acute Condition: Stable Instructions: ED Fever Unconf Cause, ED Viral Syndrome Prescriptions: Ondansetron Odt [Zofran] 4 mg TL Q6H PRN #10 tablet PRN Reason: Nausea / Vomiting Comments: All of your tests look good. Your blood cultures are pending at this time, and preliminary results will be back tomorrow. Most likely, you have a viral illness. You may take Tylenol 650 mg every 4 hours and ibuprofen 600 mg 6 hours as needed for fever. You may take the Zofran as needed for nausea. Please drink plenty of clear liquids. You will be notified if your blood cultures are positive. Discharge Date/Time: 04/01/21 22:32
[2021-04-01] MEDS ORDERED: IOVERSOL 320 100 ML VIAL IVP ONE ×2 (19:53→20:41)
[2021-04-01 20:05] LABS: BILIRUBIN,URINE NEGATIVE (NEGATIVE); GLUCOSE, URINE (UA) NEGATIVE (NEGATIVE); KETONES,URINE (UA) NEGATIVE (NEGATIVE); LEUKOCYTE ESTERASE, URINE NEGATIVE (NEGATIVE); NITRITE,URINE NEGATIVE (NEGATIVE); OCCULT BLOOD,URINE NEGATIVE (NEGATIVE); PROTEIN,URINE NEGATIVE (NEGATIVE); UROBILINOGEN,URINE 0.2 (NORMAL) E.U./dL (NORMAL)
[2021-04-01 20:14] LABS: CLARITY,URINE CLEAR (CLEAR)
[2021-04-01 21:02] LABS: B. PARAPERTUSSIS- RESP PCR PAN NOT DETECTED; B. PERTUSSIS- RESP PCR PANEL NOT DETECTED; C. PNEUMONIAE- RESP PCR PANEL NOT DETECTED; CORONAVIRUS 229E-RESP PCR NOT DETECTED; CORONAVIRUS HKU1-RESP PCR NOT DETECTED; CORONAVIRUS NL63-RESP PCR NOT DETECTED; CORONAVIRUS OC43-RESP PCR NOT DETECTED; HUMAN METAPNEUMOVIRUS NOT DETECTED; INFLUENZA A- RESP PCR PANEL NOT DETECTED; INFLUENZA B - RESP PCR PANEL NOT DETECTED; M. PNEUMONIAE- RESP PCR PANEL NOT DETECTED; PARAINFLUENZA VIRUS 1 NOT DETECTED; PARAINFLUENZA VIRUS 2 NOT DETECTED; PARAINFLUENZA VIRUS 3 NOT DETECTED; PARAINFLUENZA VIRUS 4 NOT DETECTED; RHINOVIRUS/ENTEROVIRUS NOT DETECTED; RSV- RESP PCR PANEL NOT DETECTED; SARS-CoV-2 -RESP PCR PANEL NOT DETECTED
--- NOTE | 2021-04-01 21:12 | CT Report ---
PROCEDURE: Abdomen/Pelvis W INDICATIONS: abd pain/elevated LFT fever CONTRAST: IV CONTRAST: Optiray 320 ml: 100 PO CONTRAST: *NO PO CONTRAST TECHNIQUE: After the administration of weight appropriate dose of intravenous contrast, 5 mm thick sections acqu ired from the diaphragms to the symphysis. 5 mm thick coronal and sagittal reformats were acquired. For radiation dose reduction, the following was used: automated exposure control, adjustment of mA and/or kV according to patient size. COMPARISON: 01/01/2021 and 05/12/2018 FINDINGS: Image quality: Excellent. ABDOMEN: Lung bases: Stable appearance of partially calcified oval right lung base pulmonary nodule. It measu res approximately 1.7 cm in maximum dimension, similar in size when measured at a similar level on pr ior study of 2018. Lung bases are otherwise clear. Heart size is normal. Very small hiatal hernia. Solid organs: Liver and spleen are normal in size and enhancement. Mild diffuse hepatic steatosis. G allbladder is surgically absent. Biliary system is non dilated. Pancreas enhances normally. No adr enal nodules. Kidneys demonstrate normal size and enhancement, without hydronephrosis. Peritoneum and bowel: Bowel loops demonstrate normal wall thickness and caliber. No free fluid or a ir. Stable appearance of sigmoid diverticulosis without acute diverticulitis. Nodes and vessels: No retroperitoneal or mesenteric adenopathy by size criteria. Aorta and inferior vena cava are normal in size. Miscellaneous: No ventral hernias. PELVIS: Genitourinary: Bladder wall thickness is normal. Miscellaneous: No inguinal hernias or adenopathy. Bones: No suspicious bony lesions. No acute vertebral body compression fractures. Multilevel spond ylitic changes of the imaged spine. IMPRESSION: 1. CT abdomen and pelvis without acute abnormalities to explain patient's symptoms. 2. Sigmoid diverticulosis without acute diverticulitis. 3. Status post cholecystectomy. 4. Stable partially calcified 1.7 cm nodule in the right lower lobe, unchanged since 05/12/2018. 5. Diffuse hepatic steatosis. 6. Very small hiatal hernia. 7. Multilevel spondylosis. Reviewed by: Luis Oliveira MD on 04/01/2021 9:11 PM PDT Approved by: Luis Oliveira MD on 04/01/2021 9:11 PM PDT Station ID: [id number]
[2021-04-01 22:10] VITALS: BP 150/80
[2021-04-01] MEDS ORDERED: ONDANSETRON ODT 4 MG Prepack 2 TL PRN (22:23)
== END 2021-04-01 22:32 | disposition home or self-care (01) ==
LOC: ED 17:18
DX: R50.9 Fever, unspecified (principal); R00.0 Tachycardia, unspecified; I10 Essential (primary) hypertension; Z20.822 Contact with and (suspected) exposure to COVID-19
CPT/HCPCS: 36415; 71045; 74177; 80053; 81003; 83690; 84484; 85025; 87040; 87631; 93005; 96361; 96374; 96375; 99283; 99284; A9270; J1170; Q9967; 0202U; 81001; 87086

== ENCOUNTER 2021-04-11 08:00 | Outpatient (CLI) | payer MEDICARE, OTHER | END 2021-04-11 23:59 | disposition home or self-care (01) | LOC: LAB.N 08:00 | PROVIDERS: ATTEND Physician Assistant Medical | DX: N39.498 Other specified urinary incontinence (principal) | CPT/HCPCS: 87086 ==

== ENCOUNTER 2021-04-13 12:48 | Emergency (ER) | payer MEDICARE, OTHER ==
[2021-04-13] MEDS ORDERED: DEXAMETHASONE 10 MG/ML VIAL IVP STA (14:38)
[2021-04-13] MEDS ORDERED: SODIUM CHLORIDE 0.9% 1,000 ML IV STA (14:38)
--- NOTE | 2021-04-13 14:43 | ED Physician Documentation ---
History of Present Illness - Stated complaint Stated Complaint: SOA/HEAD PX - Chief complaint Chief Complaint: Resp - History obtained from History obtained from: Patient - History of Present Illness Timing: How many weeks ago (2) - Additonal information Additional information: 70-year-old female has developed an illness with headache and vomiting over the past 2 weeks. She feels weakness as well. She was seen and evaluated here in the emergency department on 04/01/2021 diagnosed with viral syndrome. She states that 2 days after that she became more ill and has had a continued decline since. She has some had some vomiting she has been trying to keep hydrated. She has started on hydralazine about 3 weeks ago and she feels some of her symptoms may have started shortly after that. She was started on metoprolol in addition to the hydralazine on the visit before her last visit. Review of Systems Constitutional: reports: Myalgias, Fatigue, Sweats. denies: Fever Eyes: denies: Decreased vision Ears: denies: Ear pain Nose: denies: Rhinorrhea / runny nose, Congestion Throat: denies: Sore throat Cardiac: denies: Chest pain / pressure Respiratory: reports: Dyspnea. denies: Cough, Hemoptysis, Wheezing GI: denies: Abdominal Pain, Nausea, Vomiting, Diarrhea : denies: Dysuria, Frequency Skin: denies: Rash Musculoskeletal: reports: Neck pain. denies: Back pain, Extremity pain Neurologic: reports: Headache. denies: Generalized weakness, Focal weakness, Numbness, Head injury, LOC PD PAST MEDICAL HISTORY - Past Medical History Cardiovascular: Hypertension, High cholesterol Respiratory: None Neuro: None Endocrine/Autoimmune: HyPOthyroidism GI: None Psych: Anxiety Musculoskeletal: Osteoarthritis - Past Surgical History Past Surgical History: Yes General: Cholecystectomy - Present Medications Home Medications: Ambulatory Orders Medication Instructions Recorded Confirmed Benzonatate [Tessalon Perle] 100 - 200 mg PO TID PRN #30 capsule 01/29/19 Cetirizine [ZyrTEC] 10 mg PO DAILY #30 tablet 01/29/19 Losartan Potassium 50 mg PO DAILY #30 tablet 01/29/19 dexAMETHasone [Decadron] 4 mg PO DAILY #5 tablet 01/29/19 guaiFENesin/CODEINE [Robitussin AC] 10 ml PO Q6H PRN #240 ml 01/29/19 Ondansetron Odt [Zofran] 4 mg TL Q6H PRN #10 tablet 04/01/21 Rivaroxaban [Xarelto] 15 mg PO BID #42 tablet 04/13/21 predniSONE [Deltasone] 10 mg PO [id number] #42 tab 04/13/21 - Allergies Allergies/Adverse Reactions: Allergies Allergy/AdvReac Type Severity Reaction Status Date / Time Sulfa (Sulfonamide Allergy Unknown Verified 04/13/21 13:05 Antibiotics) - Social History Does the pt smoke?: No Smoking Status: Never smoker Does the pt drink ETOH?: Yes Does the pt have substance abuse?: No - Immunizations Immunizations are current?: Yes - POLST Patient has POLST: No PD ED PE NORMAL - Vitals Vital signs reviewed: Yes (wide pulse pressure. ) - General General: Alert and oriented X 3, No acute distress, Well developed/nourished - HEENT HEENT: Atraumatic, PERRL, EOMI - Neck Neck: Supple, no meningeal sign, No bony TTP - Cardiac Cardiac: RRR, No murmur - Respiratory Respiratory: No respiratory distress, Clear bilaterally - Abdomen Abdomen: Normal bowel sounds, Soft, Non tender, Non distended, No organomegaly - Back Back: No CVA TTP, No spinal TTP - Derm Derm: Normal color, Warm and dry, No rash - Extremities Extremities: No deformity, No edema - Neuro Neuro: Alert and oriented X 3, welder fitter gas 2-12 intact, No motor deficit, No sensory deficit, Normal speech Eye Opening: Spontaneous Motor: Obeys Commands Verbal: Oriented GCS Score: 15 - Psych Psych: Normal mood, Normal affect Results - Vitals Vitals: Vital Signs - 24 hr 04/13/21 04/13/21 04/13/21 12:57 14:00 16:00 Temperature 36.6 C Heart Rate 85 82 89 Respiratory 20 22 23 Rate Blood Pressure 106/58 L 109/63 132/70 H O2 Saturation 97 98 99 04/13/21 17:00 Temperature Heart Rate 96 Respiratory 23 Rate Blood Pressure 136/73 H O2 Saturation 99 Oxygen O2 Source Room air - Labs Labs: Laboratory Tests 04/13/21 04/13/21 04/13/21 14:48 15:25 15:25 WBC 8.4 RBC 4.14 L Hgb 13.6 Hct 39.8 MCV 96.1 MCH 32.9 H MCHC 34.2 RDW 11.9 L Plt Count 460 H MPV 9.8 Neut # (Auto) 5.9 Lymph # (Auto) 1.2 L [place] # (Auto) 0.8 Eos # (Auto) 0.3 Baso # (Auto) 0.1 Absolute Nucleated RBC 0.00 Nucleated RBC % 0.0 ESR D-Dimer Sodium 132 L Potassium 3.5 Chloride 96 L Carbon Dioxide 25 Anion Gap 11.0 BUN 8 Creatinine 0.7 Estimated GFR (MDRD) 83 L Glucose 105 H Lactic Acid Calcium 9.1 Magnesium 2.2 Total Bilirubin 1.1 H AST 22 ALT 30 Alkaline Phosphatase 88 C-Reactive Protein 1.1 H Total Protein 7.8 Albumin 4.1 Globulin 3.7 Albumin/Globulin Ratio 1.1 Lipase 62 H TSH Urine Color YELLOW Urine Clarity CLEAR Urine pH 7.0 Ur Specific [place] <=1.005 Urine Protein NEGATIVE Urine Glucose (UA) NEGATIVE Urine Ketones TRACE Urine Occult Blood NEGATIVE Urine Nitrite NEGATIVE Urine Bilirubin NEGATIVE Urine Urobilinogen 1 (NORMAL) Ur Leukocyte Esterase NEGATIVE Ur Microscopic Review NOT INDICATED Urine Culture Comments NOT INDICATED 04/13/21 04/13/21 04/13/21 15:25 15:25 15:25 WBC RBC Hgb Hct MCV MCH MCHC RDW Plt Count MPV Neut # (Auto) Lymph # (Auto) [place] # (Auto) Eos # (Auto) Baso # (Auto) Absolute Nucleated RBC Nucleated RBC % ESR 67 H D-Dimer Sodium Potassium Chloride Carbon Dioxide Anion Gap BUN Creatinine Estimated GFR (MDRD) Glucose Lactic Acid 1.4 Calcium Magnesium Total Bilirubin AST ALT Alkaline Phosphatase C-Reactive Protein Total Protein Albumin Globulin Albumin/Globulin Ratio Lipase TSH 4.72 Urine Color Urine Clarity Urine pH Ur Specific [place] Urine Protein Urine Glucose (UA) Urine Ketones Urine Occult Blood Urine Nitrite Urine Bilirubin Urine Urobilinogen Ur Leukocyte Esterase Ur Microscopic Review Urine Culture Comments 04/13/21 15:25 WBC RBC Hgb Hct MCV MCH MCHC RDW Plt Count MPV Neut # (Auto) Lymph # (Auto) [place] # (Auto) Eos # (Auto) Baso # (Auto) Absolute Nucleated RBC Nucleated RBC % ESR D-Dimer 452.0 H Sodium Potassium Chloride Carbon Dioxide Anion Gap BUN Creatinine Estimated GFR (MDRD) Glucose Lactic Acid Calcium Magnesium Total Bilirubin AST ALT Alkaline Phosphatase C-Reactive Protein Total Protein Albumin Globulin Albumin/Globulin Ratio Lipase TSH Urine Color Urine Clarity Urine pH Ur Specific [place] Urine Protein Urine Glucose (UA) Urine Ketones Urine Occult Blood Urine Nitrite Urine Bilirubin Urine Urobilinogen Ur Leukocyte Esterase Ur Microscopic Review Urine Culture Comments - Rads (name of study) head Radiology: Prelim report reviewed (Impression: No acute intracranial abnormality.), EMP read indepedently, See rad report chest Radiology: Prelim report reviewed (Impression cardiomegaly with minimal residual edema.), EMP read indepedently, See rad report CTA chest Radiology: Prelim report reviewed (Impression: 1. Suspected distal lower lobe segmental pulmonary artery emboli. 2. Mildly prominent areas of pulmonary vein emboli particularly within the upper lobes.), EMP read indepedently, See rad report PD MEDICAL DECISION MAKING - ED course Complexity details: reviewed results, re-evaluated patient, considered differential, d/w patient ED course: 70-year-old female has had progressive worsening of a ill-defined illness since beginning hydralazine 3 weeks ago. She has elevation in her ESR and CRP as well as an elevation in her D-dimer. She is complaining of shortness of breath and a CT angio of the chest is obtained. The CT angio does demonstrate pulmonary artery embolism as well as pulmonary venous thrombosis. The differential on the venous thrombosis includes autoimmune disease. The patient here is given dexamethasone in the emergency department she is given Toradol for pain and Xarelto for thrombosis.I had to look up this pulmonary venous thrombosis in up-to-date and found this to be an extremely rare condition sometimes incited by autoimmune disease. My thoughts on this case are that potentially the patient has triggered autoimmune disease with the hydralazine and this has caused her issue with thrombosis. I do not see pulmonary hypertension in her echo from december of this year. Have consulted the on-call straw hat brim raiser operator for Dr. Perez and he has recommended follow-up with them, and if she requires evaluation with pulmonology they will help arrange that. He recommended taking her off of the hydralazine. Departure - Departure Disposition: 01 Home, Self Care Clinical Impression: Pulmonary venous thrombosis, Medication side effect Pulmonary emboli Qualifiers: Pulmonary embolism type: multiple subsegmental (without acute cor pulmonale) Qualified Code(s): I26.94 - Multiple subsegmental pulmonary emboli without acute cor pulmonale Condition: Stable Instructions: Embolism Pulmonary Follow-Up: Pieter Flores MD [Primary Care Provider] - Saloni Hernadez MD [Provider Admit Priv/Credential] - Prescriptions: predniSONE [Deltasone] 10 mg PO [id number] #42 tab Rivaroxaban [Xarelto] 15 mg PO BID #42 tablet Comments: Today it appears that you are having a side effect of your medication. The re commendation is to stop taking the hydralazine. Continue to take the metoprolol. There is evidence of clot in the lung. We have placed you onto a blood thinner. You will need to take the Xarelto 15 mg twice per day for 3 weeks and following that you will need to take 20 mg daily. You will need a follow-up within the next 3 weeks to refill this prescription. My recommendation is to follow-up with Dr. Perez in this coming week regarding further work-up and treatment as needed. The condition with pulmonary venous thrombus is a rare condition and this likely is only related to the autoimmune phenomena as I do not see any evidence of pulmonary hypertension.
[2021-04-13 14:54] LABS: BILIRUBIN,URINE NEGATIVE (NEGATIVE); GLUCOSE, URINE (UA) NEGATIVE (NEGATIVE); KETONES,URINE (UA) TRACE mg/dL (NEGATIVE); LEUKOCYTE ESTERASE, URINE NEGATIVE (NEGATIVE); NITRITE,URINE NEGATIVE (NEGATIVE); OCCULT BLOOD,URINE NEGATIVE (NEGATIVE); PROTEIN,URINE NEGATIVE (NEGATIVE); UROBILINOGEN,URINE 1 (NORMAL) E.U./dL (NORMAL)
--- NOTE | 2021-04-13 15:01 | XRAY Report ---
PROCEDURE: Chest 1 View X-Ray INDICATIONS: chest pain TECHNIQUE: One view of the chest was acquired. COMPARISON: Chest x-ray 05/01/2021 FINDINGS: Surgical changes and devices: Pacer device is noted. Lungs and pleura: Minimal residual edema. Mediastinum: Mediastinal contours appear normal. Heart size is enlarged. Bones and chest wall: No suspicious bony lesions. Overlying soft tissues appear unremarkable. IMPRESSION: Cardiomegaly with minimal residual edema. Reviewed by: Noris Bowers MD on 04/13/2021 3:00 PM PDT Approved by: Noris Bowers MD on 04/13/2021 3:00 PM PDT Station ID: [id number]
[2021-04-13 15:04] LABS: CLARITY,URINE CLEAR (CLEAR)
--- NOTE | 2021-04-13 15:19 | CT Report ---
PROCEDURE: HEAD WO INDICATIONS: Headache TECHNIQUE: Noncontrast 4.5 mm thick angled axial sections acquired from the foramen magnum to the vertex. For r adiation dose reduction, the following was used: automated exposure control, adjustment of mA and/or kV according to patient size. COMPARISON: 11/13/2017 FINDINGS: Image quality: Excellent. CSF spaces: Basal cisterns are patent. No extra-axial fluid collections. Ventricles are normal in size and shape. Brain: No midline shift. No intracranial masses or hemorrhage. Arroyo-white matter interface is norm al. Skull and face: Calvarium and visualized facial bones are intact, without suspicious lesions. Sinuses: Visualized sinuses and mastoids are clear. IMPRESSION: No acute intracranial abnormality. Reviewed by: Nehemiah Reynaga MD on 04/13/2021 3:18 PM PDT Approved by: Nehemiah Reynaga MD on 04/13/2021 3:18 PM PDT Station ID: [id number]
[2021-04-13 15:31] LABS: BASOPHILS # (AUTO) 0.1 10^3/uL (0.0-0.1); BASOPHILS % (AUTO) 0.8 %; EOSINOPHILS # (AUTO) 0.3 10^3/uL (0.0-0.7); EOSINOPHILS % (AUTO) 3.6 %; HCT - HEMATOCRIT 39.8 % (37.0-47.0); HGB - HEMOGLOBIN 13.6 g/dL (12.0-16.0); LYMPHOCYTES # (AUTO) 1.2 10^3/uL (1.5-3.5); LYMPHOCYTES % (AUTO) 14.5 %; MEAN CORPUSCULAR HEMOGLOBIN 32.9 pg (27.0-31.0); MEAN CORPUSCULAR HGB CONC 34.2 g/dL (32.0-36.0); MEAN CORPUSCULAR VOLUME 96.1 fL (81.0-99.0); MEAN PLATELET VOLUME 9.8 fL (7.9-10.8); MONOCYTES # (AUTO) 0.8 10^3/uL (0.0-1.0); MONOCYTES % (AUTO) 9.7 %; NEUTROPHILS # (AUTO) 5.9 10^3/uL (1.5-6.6); NEUTROPHILS % (AUTO) 70.8 %; PLT - PLATELET COUNT 460 10^3/uL (130-450); RED BLOOD COUNT 4.14 10^6/uL (4.20-5.40); RED CELL DISTRIBUTION WIDTH 11.9 % (12.0-15.0); WHITE BLOOD COUNT 8.4 x10^3/uL (4.8-10.8)
[2021-04-13 15:50] LABS: ALBUMIN 4.1 g/dL (3.2-5.5); ALBUMIN/GLOBULIN RATIO 1.1 (1.0-2.2); BILIRUBIN,TOTAL 1.1 mg/dL (0.2-1.0); CALCIUM 9.1 mg/dL (8.5-10.3); CREATININE 0.7 mg/dL (0.4-1.0); CRP - C-REACTIVE PROTEIN 1.1 mg/dL (0-1.0); MAGNESIUM 2.2 mg/dL (1.7-2.8); POTASSIUM 3.5 mmol/L (3.5-5.0); TOTAL PROTEIN 7.8 g/dL (6.7-8.2)
[2021-04-13] MEDS ORDERED: IOVERSOL 320 100 ML VIAL IVP ONE ×2 (16:06→16:28)
--- NOTE | 2021-04-13 16:58 | CT Report ---
PROCEDURE: ANGIO CHEST W/WO INDICATIONS: soa elevated d-dimer CONTRAST: IV CONTRAST: Optiray 320 ml: 80 PO CONTRAST: *NO PO CONTRAST TECHNIQUE: After the administration of intravenous contrast, 2 mm thick sections acquired from the pulmonary api brenna to the posterior costophrenic angles. 3-dimensional maximum intensity projection (MIP) coronal a nd sagittal reformats were then acquired through the thorax. For radiation dose reduction, the follow ing was used: automated exposure control, adjustment of mA and/or kV according to patient size. COMPARISON: CT abdomen pelvis 04/01/2021, 05/12/2018 FINDINGS: Image quality: Suboptimal opacification of segmental pulmonary arteries. Pulmonary arteries: Pulmonary arteries are normal in size, and demonstrate no intraluminal filling d efects to suggest central pulmonary embolism. As noted above, there is suboptimal opacification of t he segmental pulmonary arteries. However, there are several punctate areas of decreased contrast opac ification within the distal branches of the lower lobes raising concern for emboli. In addition, ther e is definitive emboli within the branches of the pulmonary veins, most prominent in the upper lobes. Lungs and pleura: Calcified nodule within the right base is unchanged since 2018. No pleural effusion s or pneumothorax. Central and peripheral airways are patent. Mediastinum: Heart size is mildly prominent, without pericardial effusion. No mediastinal or hilar adenopathy. Thoracic aorta is normal in caliber and enhancement. Esophagus is normal in caliber, wi thout hiatal hernia. Bones and chest wall: No suspicious bony lesions. Ribs and thoracic spine appear intact throughout. No axillary or supraclavicular adenopathy. The thyroid is normal in size and there are no incident al findings. Abdomen: Visualized upper abdominal solid organs appear normal in the early arterial phase of enhanc ement. IMPRESSION: 1. Suspected distal lower lobe segmental pulmonary arterial emboli. 2. Mildly prominent areas of pulmonary vein emboli particularly within the upper lobes. The above findings were discussed with Dr. Con Pope on 04/13/2021 at 4:50 PM Reviewed by: Noris Bowers MD on 04/13/2021 4:56 PM PDT Approved by: Noris Bowers MD on 04/13/2021 4:56 PM PDT Station ID: [id number]
[2021-04-13] MEDS ORDERED: RIVAROXABAN 15 MG TABLET PO STA (17:22)
[2021-04-13] MEDS ORDERED: KETOROLAC 30 MG/ML VIAL IVP STA (18:25)
[2021-04-13 18:36] VITALS: BP 127/74
[2021-04-17 12:01] LABS: ANA SCREEN NEGATIVE (NEGATIVE)
== END 2021-04-13 18:50 | disposition home or self-care (01) ==
LOC: ED 12:48
DX: I26.94 Multiple subsegmental thrombotic pulmonary emboli without acute cor pulmonale (principal); T50.905A Adverse effect of unspecified drugs, medicaments and biological substances, initial encounter
CPT/HCPCS: 36415; 70450; 71045; 71275; 80053; 81003; 83605; 83690; 83735; 84443; 85025; 85379; 85651; 86038; 86140; 96374; 96375; 99284; A9270; Q9967; 81001; 87086

== ENCOUNTER 2021-07-13 08:08 | Emergency (ER) | payer MEDICARE, OTHER ==
--- NOTE | 2021-07-13 08:28 | ED Physician Documentation ---
PD HPI Fall - Stated complaint Stated Complaint: FALL - History obtained from History obtained from: Patient - History of Present Illness Mechanism of injury: Tripped (she states fell asleep on couch and got up, thinking she was in bed, so stumbled on table next to couch and fell into room screen, which fell and she fell with it. Struck face, left chest and knee. Toe hurts from stubbing on table. Got up and went to bed. Having swelling and bruising this morning.) Fall distance: Standing position Where injury occurred: Home Timing - onset: Last night Injury(ies) location: Face, Chest (left lateral chest/lower ribs.), Right Lower Extremity (great toe base painful and swelling), Left Lower Extremity (knee with some swelling and tender. but full ROM and able to walk on it.). No: Head, Neck, Abdomen, Back Quality of pain: Pain (mostly right great toe), Aching (facial around right eye/cheek, with swelling.) Associated symptoms: No: LOC, AMS, Weakness, Paresthesias Worsens with: Movement Contributing factors: Anticoagulated. No: Intoxicated Similar symptoms before: Has not had sx before Recently seen: Not recently seen Review of Systems Constitutional: reports: Other (right facial swelling.). denies: Fever, Chills Eyes: reports: Decreased vision (states right eye vision slightly blurry.). denies: Loss of vision Nose: denies: Rhinorrhea / runny nose, Congestion Throat: denies: Sore throat Respiratory: denies: Cough Skin: denies: Laceration (s) Musculoskeletal: denies: Neck pain, Back pain Neurologic: denies: Focal weakness, Numbness, Altered mental status, Headache, LOC PD PAST MEDICAL HISTORY - Past Medical History Cardiovascular: Hypertension, High cholesterol, Atrial fibrillation Respiratory: None Neuro: None Endocrine/Autoimmune: HyPOthyroidism GI: None Psych: Anxiety Musculoskeletal: Osteoarthritis - Past Surgical History Past Surgical History: Yes General: Cholecystectomy - Present Medications Home Medications: Ambulatory Orders Medication Instructions Recorded Confirmed Benzonatate [Tessalon Perle] 100 - 200 mg PO TID PRN #30 capsule 01/29/19 05/29/21 Cetirizine [ZyrTEC] 10 mg PO DAILY #30 tablet 01/29/19 05/29/21 Losartan Potassium 50 mg PO DAILY #30 tablet 01/29/19 05/29/21 dexAMETHasone [Decadron] 4 mg PO DAILY #5 tablet 01/29/19 05/29/21 guaiFENesin/CODEINE [Robitussin AC] 10 ml PO Q6H PRN #240 ml 01/29/19 05/29/21 Ondansetron Odt [Zofran] 4 mg TL Q6H PRN #10 tablet 04/01/21 05/29/21 Rivaroxaban [Xarelto] 15 mg PO BID #42 tablet 04/13/21 05/29/21 predniSONE [Deltasone] 10 mg PO [id number] #42 tab 04/13/21 05/29/21 Docusate Sodium 100Mg Capsule 100 mg PO DAILY #20 cap 07/13/21 [Colace 100Mg Capsule] HYDROcod/ACETAM 5/325 [Mobile 5/325] 1 ea PO Q6H PRN #18 tablet 07/13/21 - Allergies Allergies/Adverse Reactions: Allergies Allergy/AdvReac Type Severity Reaction Status Date / Time Sulfa (Sulfonamide Allergy Unknown Verified 07/13/21 08:42 Antibiotics) - Social History Does the pt smoke?: No Smoking Status: Never smoker Does the pt drink ETOH?: Yes Does the pt have substance abuse?: No - Immunizations Immunizations are current?: Yes - POLST Patient has POLST: No PD ED PE NORMAL - Vitals Vital signs reviewed: Yes - General General: Alert and oriented X 3, Well developed/nourished, Other (seems uncofmrtable with toe/foot movement right. Tender with facial palpation of swelling cheek and lower periorbital. ) - HEENT HEENT: Other (There is obvious swelling with bruising in the right periorbital and cheek area without any laceration. Eye exam shows good range of motion of the eye and normal contour constriction. Anterior and posterior chambers are clear without any signs of bleeding.) - Neck Neck: Supple, no meningeal sign, No adenopathy, Other (mildly tender lower left lateral neck muscles; no bondy tenderness. ) - Respiratory Respiratory: No respiratory distress, Clear bilaterally, Other (Some mild bruising in the left posterior lateral lower ribs area without any deformity or crepitance.) - Abdomen Abdomen: Soft, Non tender - Back Back: No CVA TTP, No spinal TTP - Derm Derm: Normal color, Warm and dry - Extremities Extremities: Other (The left knee shows some mild bruising and swelling and anteriorly without any bony deformity. No effusion. Full remaining range of motion without any pain. The right great toe base shows some swelling and ecchymosis with tenderness on range of motion and palpation. Midfoot and ankle are n/t.) - Neuro Neuro: Alert and oriented X 3, No motor deficit, No sensory deficit, Normal speech Eye Opening: Spontaneous Motor: Obeys Commands Verbal: Oriented GCS Score: 15 Results - Vitals Vitals: Vital Signs - 24 hr 07/13/21 07/13/21 07/13/21 08:17 09:00 10:00 Temperature 37.2 C Heart Rate 93 95 94 Respiratory 16 16 18 Rate Blood Pressure 156/87 H 147/71 H 154/79 H O2 Saturation 97 97 98 Oxygen O2 Source Room air - Rads (name of study) head CT Radiology: Prelim report reviewed (no ICH nor acute process), See rad report facial CT Radiology: Prelim report reviewed (no fractures), See rad report chest CT Radiology: Prelim report reviewed (no rib nor spine fractures. ), See rad report right foot Radiology: Prelim report reviewed (avulsion fracture proximal corner proximal phalanx right great toe. ), See rad report PD MEDICAL DECISION MAKING - ED course Complexity details: reviewed results, re-evaluated patient, considered differential, d/w patient Departure - Departure Disposition: 01 Home, Self Care Clinical Impression: Anticoagulant long-term use, Multiple contusions Fall from slip, trip, or stumble Qualifiers: Encounter type: initial encounter Qualified Code(s): W01.0XXA - Fall on same level from slipping, tripping and stumbling without subsequent striking against object, initial encounter Contusion of face Qualifiers: Encounter type: initial encounter Qualified Code(s): S00.83XA - Contusion of other part of head, initial encounter Chest wall contusion Qualifiers: Encounter type: initial encounter Laterality: left Qualified Code(s): S20.212A - Contusion of left front wall of thorax, initial encounter Toe fracture, right Qualifiers: Encounter type: initial encounter Toe: great toe Fracture type: closed Phalanx: proximal Fracture alignment: nondisplaced Qualified Code(s): S92.414A - Nondisplaced fracture of proximal phalanx of right great toe, initial encounter for closed fracture Condition: Stable Record reviewed to determine appropriate education?: Yes Instructions: ED Contusion Soft Tissue, ED Fx Toe Closed Follow-Up: Pieter Flores MD [Primary Care Provider] - Prescriptions: Docusate Sodium 100Mg Capsule [Colace 100Mg Capsule] 100 mg PO DAILY #20 cap HYDROcod/ACETAM 5/325 [Mobile 5/325] 1 ea PO Q6H PRN #18 tablet PRN Reason: Pain Comments: No bleeding within the skull or brain area. No fractures on your face ribs but no organ injury in the chest. You will still be sore from the areas of bruising and contusion. Tylenol if needed for mild pains and add hydrocodone every 6 hours if needed for worse pains. Continue your other usual medicines. Add a stool softener daily for the next week or 2 to prevent constipation from the medications and injuries. The toe fracture at the base of the great toe should decrease in pain over the next several days and then week or 2 but take a good month or so to fully heal. Use a firm soled shoe to reduce motion through the area. Ice and rest for the areas that are injured to reduce swelling. I transmitted your prescription to [facility] pharmacy. I am prescribing a short course of narcotic pain medication for you. These are potentially dangerous and addictive medications that should be used carefully. These medications may constipate you. Take an [id number] stool softener such as docusate twice daily with plenty of water while taking these medica tions. If you go 24 hours without a bowel movement, take [id number] MiraLAX, per package instructions. Do not drink or drive while taking these medications. If you received narcotic or sedating medications while in the emergency department do not drive for 24 hours. Store this medication in a safe, secure place and out of reach of children. It is a violation of federal law to give or sell this medication to another person or to use in a manner other than prescribed. The ED will not refill narcotic prescriptions, including prescriptions lost or stolen. You can dispose of unwanted medications at the [facility]'s office or at several pharmacies such as [facility]. Discharge Date/Time: 07/13/21 11:00
[2021-07-13] MEDS ORDERED: HYDROcod/ACETAM 5/325 MG TABLET PO STA (08:39)
--- NOTE | 2021-07-13 09:20 | XRAY Report ---
PROCEDURE: Foot 3 View RT INDICATIONS: fall with foot/great toe pain TECHNIQUE: 3 views of the foot were acquired. COMPARISON: None FINDINGS: Bones: There is an avulsion fracture of the medial aspect of the proximal phalanx of the great toe wi th 2 mm displacement. No suspicious bony lesions. The interphalangeal joints have degenerative od ges. Soft tissues: No tibiotalar joint effusion. Achilles tendon appears normal. IMPRESSION: Avulsion fracture of the base of the great toe proximal phalanx medially. Reviewed by: Elmer Gastelum on 07/13/2021 9:18 AM PDT Approved by: Elmer Gastelum on 07/13/2021 9:18 AM PDT Station ID: [id number]
--- NOTE | 2021-07-13 10:00 | CT Report ---
PROCEDURE: MAXILLOFACIAL WO INDICATIONS: fall with struck head/face, bruising, on Xarelto TECHNIQUE: Noncontrast 1.5 mm thick axial images acquired from the mandible through the frontal sinuses, with co rosendo and sagittal reformatting. For radiation dose reduction, the following was used: automated ex posure control, adjustment of mA and/or kV according to patient size. COMPARISON: Relation is made with the accompanying head CT, 07/13/2021 correlation is also made with prior sinus CT, 11/12/2017 FINDINGS: Image quality: Excellent. Bones and teeth: Orbital harrison are intact. Sinus harrison show no fracture or deformity. Nasal bones and septum are intact. Moderate rightward nasal septal deviation is seen, which has a chronic appear ance and does not represent an acute injury. Visualized portions of the mandible demonstrate no fract ures or subluxation. Zygomatic arches are intact. Pterygoid plates are intact. Visualized portions of the skull base and auditory canals are intact. Hyperostosis frontalis is incidentally noted, whi ch is not frankly abnormal for a female patient of this age. Sinuses: Paranasal sinuses are aerated, without fluid levels, mucosal thickening, or mucoceles. Mas toid air cells are aerated. Soft tissues: Soft tissue swelling with underlying hematomas can be seen involving the right cheek. G eneralized inflammatory changes are seen. Vascular: Visualized vascular structures appear normal in the absence of contrast. Bony vascular fo ramina and canals are intact. IMPRESSION: Right cheek soft tissue swelling with hematoma, without an associated fracture. Focal degenerative change can also be seen involving the C1-C2 interface anteriorly. Reviewed by: Nestor Bowling MD on 07/13/2021 8:58 AM VIKTORIA Approved by: Nestor Bowling MD on 07/13/2021 8:58 AM VIKTORIA Station ID: [id number]
--- NOTE | 2021-07-13 10:02 | CT Report ---
PROCEDURE: HEAD WO INDICATIONS: fall with struck head/face, bruising, on Xarelto TECHNIQUE: Noncontrast 4.5 mm thick angled axial sections acquired from the foramen magnum to the vertex. For r adiation dose reduction, the following was used: automated exposure control, adjustment of mA and/or kV according to patient size. COMPARISON: Prior head CT, 04/13/2021 and 11/13/2017. Correlation is also made with the accompanying max illofacial CT, 07/13/2021. FINDINGS: Image quality: There is streak artifact seen through the skull base. CSF spaces: Basal cisterns are patent. No extra-axial fluid collections. Ventricles are normal in size and shape. Brain: No midline shift. No intracranial masses or hemorrhage. Arroyo-white matter interface is norm al. Skull and face: There is partial visualization of right cheek soft tissue swelling. No regional frac ture is seen. Calvarium and visualized facial bones are intact, without suspicious lesions. Sinuses: Visualized sinuses and mastoids are clear. IMPRESSION: No intracranial hemorrhage is seen. Right cheek soft tissue swelling with hemorrhage seen, without a regional fracture. Reviewed by: Nestor Bowling MD on 07/13/2021 9:00 AM VIKTORIA Approved by: Nestor Bowling MD on 07/13/2021 9:00 AM VIKTORIA Station ID: [id number]
--- NOTE | 2021-07-13 10:11 | CT Report ---
PROCEDURE: CHEST WO INDICATIONS: fall with left ribs pain TECHNIQUE: Noncontrast 1mm axial images were acquired from the pulmonary apices to the posterior costophrenic an gles. Axial 5 mm soft tissue kernel reconstructions were performed as well as 8 mm axial MIP and cor onal and sagittal 5 mm reformations. For radiation dose reduction, the following was used: automate d exposure control, adjustment of mA and/or kV according to patient size. COMPARISON: Prior chest CT, 04/13/2021 Correlation is made with a covering head CT and maxillofacial C T, 07/13/2021. Correlation is also made with chest radiograph, 04/13/2021. FINDINGS: Image quality: Excellent. Lungs and pleura: No acute air space opacities. A mild degree of dependent atelectasis can be seen i nvolving the right lower lobe. No pleural effusions or pneumothorax. Central and peripheral airways are patent and normal in caliber. There is again seen an ovoid nodule within the posterior aspect of the right lower lobe that measures 19 x 12 mm in greatest axial dimension with central calcification . This is stable compared to the prior examinations, including 2018. Mediastinum: Heart size is normal. Moderate coronary artery calcification can be seen. No pericardia l effusion. No mediastinal adenopathy by size criteria. Thoracic aorta and central pulmonary arteri es are normal in size. Esophagus is normal in caliber. There is a small hiatal hernia. Bones and chest wall: No suspicious bony lesions. No displaced rib fractures are seen. No vertebra l body compression fractures. Age-appropriate degenerative changes are seen. No axillary or suprac lavicular adenopathy by size criteria. The thyroid is small in size. Abdomen: Cholecystectomy clips are seen. Visualized upper abdominal solid organs and bowel loops a ppear normal in the absence of contrast. IMPRESSION: No significant posttraumatic abnormality is identified. No displaced rib fracture or pulmonary contusion can be seen. No acute vertebral body fracture can be seen Incidental note is made of: Stable right lower lobe pulmonary nodule, unchanged from 2018 Moderate coronary artery calcification Small hiatal hernia Cholecystectomy Reviewed by: Nestor Bowling MD on 07/13/2021 9:10 AM VIKTORIA Approved by: Nestor Bowling MD on 07/13/2021 9:10 AM AKTRAN Station ID: [id number]
[2021-07-13 10:33] VITALS: BP 154/79
== END 2021-07-13 11:00 | disposition home or self-care (01) ==
LOC: ED 08:08
DX: S92.414A Nondisplaced fracture of proximal phalanx of right great toe, initial encounter for closed fracture (principal); S00.83XA Contusion of other part of head, initial encounter; S20.212A Contusion of left front wall of thorax, initial encounter; S80.02XA Contusion of left knee, initial encounter; M54.2 Cervicalgia; W01.190A Fall on same level from slipping, tripping and stumbling with subsequent striking against furniture, initial encounter; Y93.01 Activity, walking, marching and hiking; Y92.009 Unspecified place in unspecified non-institutional (private) residence as the place of occurrence of the external cause; I10 Essential (primary) hypertension; I48.91 Unspecified atrial fibrillation; Z79.01 Long term (current) use of anticoagulants
CPT/HCPCS: 70450; 70486; 71250; 73630; 99283; 99284; A9270

== ENCOUNTER 2021-07-27 10:57 | Outpatient (CLI) | payer MEDICARE, OTHER ==
--- NOTE | 2021-07-27 13:42 | DEXA Report ---
PROCEDURE: Dexa Spine and/or Hip INDICATIONS: OSTEOPOROSIS TECHNIQUE: Dual energy x-ray absorptiometry (DXA) was performed on a G-CON System. Regions measur ed are the AP Spine, femoral neck, and if needed forearm. COMPARISON: None. FINDINGS: Lumbar Spine: Bone Mineral Density 1.185 g/cm/cm,T score 0.0. Left Hip: Bone Mineral Density 1.002 g/cm/cm,T score 0.0. Left Femoral Neck: Bone Mineral Density 0.86 g/cm/cm, T score -1.1. (T score greater or equal to -1.0: NORMAL) (T score from -1.1 to -2.4: OSTEOPENIA) (T score less than or equal to -2.5 to: OSTEOPOROSIS) Impression: Osteopenia. Patients with diagnosis of osteoporosis or osteopenia should have regular bone mineral density assess ment. For those eligible for Medicare, routine testing is allowed once every 2 years. Testing frequ ency can be increased for patients who have rapidly progressing disease or for those who are receivin g medical therapy to restore bone mass. Reviewed by: Ranjeet Jay MD on 07/27/2021 1:41 PM PDT Approved by: Ranjeet Jay MD on 07/27/2021 1:41 PM PDT Station ID: [id number]
== END 2021-07-27 10:58 | disposition home or self-care (01) ==
LOC: DI 10:57
PROVIDERS: ATTEND Internal Medicine Rheumatology
DX: M85.88 Other specified disorders of bone density and structure, other site (principal)

== ENCOUNTER 2021-09-05 12:22 | Outpatient (CLI) | payer MEDICARE, OTHER | END 2021-09-05 23:59 | disposition home or self-care (01) | LOC: LAB.WCP 12:22 | PROVIDERS: ATTEND Internal Medicine Rheumatology | DX: M35.3 Polymyalgia rheumatica (principal) | CPT/HCPCS: 36415; 85651; 86140 ==

== ENCOUNTER 2021-10-17 08:00 | Outpatient (CLI) | payer MEDICARE, OTHER | END 2021-10-17 23:59 | LOC: LAB.WCP 08:00 | PROVIDERS: ATTEND Family Medicine | DX: M35.3 Polymyalgia rheumatica (principal) | CPT/HCPCS: 36415; 85651; 86140 ==

== ENCOUNTER 2022-01-04 12:39 | Outpatient (CLI) | payer MEDICARE, OTHER ==
[2022-01-04 13:14] LABS: ALKALINE PHOSPHATASE 75 IU/L (42-121); ALT ALANINE AMINOTRANSFERASE 20 IU/L (10-60); AST ASPARTATE AMINOTRANSFERASE 29 IU/L (10-42); BILIRUBIN,DIRECT 0.2 mg/dL (0.1-0.5); BILIRUBIN,TOTAL 1.1 mg/dL (0.2-1.0); CHOL/HDL RATIO 2.7 (<4.4); CHOLESTEROL 192 mg/dL; HDL CHOLESTEROL 72 mg/dL; LDL CHOLESTEROL,CALCULATED 82 mg/dL; LDL/HDL RATIO 1.1 (<4.4); TOTAL PROTEIN 7.2 g/dL (6.7-8.2); TRIGLYCERIDES 191 mg/dL; VLDL CHOLESTEROL 38 mg/dL
== END 2022-01-04 12:40 | disposition home or self-care (01) ==
LOC: LAB 12:39
PROVIDERS: ATTEND Internal Medicine Cardiovascular Disease
DX: E78.49 Other hyperlipidemia (principal)
CPT/HCPCS: 36415; 80061; 80076; 83721

== ENCOUNTER 2022-04-04 15:24 | Outpatient (CLI) | payer MEDICARE, OTHER ==
--- NOTE | 2022-04-09 09:17 | Mammography Report ---
BILATERAL DIGITAL SCREENING MAMMOGRAM 3D/2D: 04/04/2022 CLINICAL: Routine screening. Comparison is made to exams dated: 11/21/2020 mammogram, 09/10/2019 mammogram, 03/26/2017 mammogram, 03/14/2017 mammogram, 11/20/2015 mammogram, and 11/15/2013 mammogram - [facility]. The tis giacomo of both breasts is heterogeneously dense. This may lower the sensitivity of mammography. No significant masses, calcifications, or other findings are seen in either breast. There has been no significant interval change. IMPRESSION: NEGATIVE There is no mammographic evidence of malignancy. A 1 year screening mammogram is recommended. This exam was interpreted at Station ID: [id number]. NOTE: For mammograms, a report in lay terms will be sent to the patient. Approximately 15% of breast malignancies will not be visualized mammographically. In the management of a palpable breast mass, a negative mammogram must not discourage biopsy of a clinically suspicious lesion. Electronically Signed By: Nehemiha Reynaga M.D., jr/emily:04/05/2022 10:37:27 ACR BI-RADS Category 1: Negative 3341F PARENCHYMAL PATTERN: (D) - The breast(s) demonstrate(s) heterogeneously dense fibroglandular ivanna hunt. BI-RADS CATEGORY: (1) - 1 RECOMMENDATION: (ANNUAL) - Recommend routine annual screening mammography. [id number] 1 year screening LATERALITY: (B)
== END 2022-04-04 15:25 | disposition home or self-care (01) ==
LOC: DI.N 15:24
PROVIDERS: ATTEND Family Medicine
DX: Z12.31 Encounter for screening mammogram for malignant neoplasm of breast (principal)

== ENCOUNTER 2022-07-09 08:00 | Outpatient (CLI) | payer MEDICARE, OTHER ==
[2022-07-09 12:04] LABS: BASOPHILS # (AUTO) 0.1 10^3/uL (0.0-0.1); BASOPHILS % (AUTO) 0.8 %; EOSINOPHILS # (AUTO) 0.1 10^3/uL (0.0-0.7); EOSINOPHILS % (AUTO) 1.8 %; HCT - HEMATOCRIT 47.4 % (37.0-47.0); HGB - HEMOGLOBIN 15.9 g/dL (12.0-16.0); LYMPHOCYTES # (AUTO) 1.7 10^3/uL (1.5-3.5); LYMPHOCYTES % (AUTO) 21.5 %; MEAN CORPUSCULAR HEMOGLOBIN 33.3 pg (27.0-31.0); MEAN CORPUSCULAR HGB CONC 33.5 g/dL (32.0-36.0); MEAN CORPUSCULAR VOLUME 99.4 fL (81.0-99.0); MEAN PLATELET VOLUME 10.6 fL (7.9-10.8); MONOCYTES # (AUTO) 0.8 10^3/uL (0.0-1.0); MONOCYTES % (AUTO) 10.2 %; NEUTROPHILS # (AUTO) 5.1 10^3/uL (1.5-6.6); NEUTROPHILS % (AUTO) 65.2 %; PLT - PLATELET COUNT 251 10^3/uL (130-450); RED BLOOD COUNT 4.77 10^6/uL (4.20-5.40); RED CELL DISTRIBUTION WIDTH 13.2 % (12.0-15.0); WHITE BLOOD COUNT 7.8 x10^3/uL (4.8-10.8)
[2022-07-09 12:22] LABS: ALBUMIN 4.3 g/dL (3.2-5.5); ALBUMIN/GLOBULIN RATIO 1.3 (1.0-2.2); ALKALINE PHOSPHATASE 104 IU/L (42-121); ALT ALANINE AMINOTRANSFERASE 46 IU/L (10-60); AST ASPARTATE AMINOTRANSFERASE 50 IU/L (10-42); BILIRUBIN,TOTAL 1.1 mg/dL (0.2-1.0); BUN - BLOOD UREA NITROGEN 14 mg/dL (6-20); CALCIUM 9.2 mg/dL (8.5-10.3); CARBON DIOXIDE - CO2 26 mmol/L (21-32); CHLORIDE 100 mmol/L (101-111); CHOL/HDL RATIO 4.4 (<4.4); CHOLESTEROL 320 mg/dL; CREATININE 0.8 mg/dL (0.4-1.0); GFR - MDRD 71 (>89); GLUCOSE 106 mg/dL (70-100); HDL CHOLESTEROL 72 mg/dL; LDL CHOLESTEROL,CALCULATED 225 mg/dL; LDL/HDL RATIO 3.1 (<4.4); POTASSIUM 4.1 mmol/L (3.5-5.0); SODIUM 138 mmol/L (135-145); TOTAL PROTEIN 7.6 g/dL (6.7-8.2); TRIGLYCERIDES 116 mg/dL; VLDL CHOLESTEROL 23 mg/dL
[2022-07-09 12:30] LABS: THYROID STIMULATING HORMONE 3.45 uIU/mL (0.34-5.60)
== END 2022-07-09 23:59 | disposition home or self-care (01) ==
LOC: LAB 08:00
PROVIDERS: ATTEND Family Medicine
DX: I10 Essential (primary) hypertension (principal); M35.3 Polymyalgia rheumatica; I26.99 Other pulmonary embolism without acute cor pulmonale; F41.9 Anxiety disorder, unspecified; F32.A Depression, unspecified
CPT/HCPCS: 36415; 80053; 80061; 83721; 84443; 85025

== ENCOUNTER 2022-07-31 15:43 | Outpatient (CLI) | payer MEDICARE, OTHER ==
[2022-07-31 16:00] LABS: BASOPHILS # (AUTO) 0.1 10^3/uL (0.0-0.1); EOSINOPHILS # (AUTO) 0.2 10^3/uL (0.0-0.7); EOSINOPHILS % (AUTO) 4.4 %; HCT - HEMATOCRIT 43.4 % (37.0-47.0); HGB - HEMOGLOBIN 14.4 g/dL (12.0-16.0); LYMPHOCYTES # (AUTO) 1.3 10^3/uL (1.5-3.5); LYMPHOCYTES % (AUTO) 25.4 %; MEAN CORPUSCULAR HEMOGLOBIN 33.2 pg (27.0-31.0); MEAN CORPUSCULAR HGB CONC 33.2 g/dL (32.0-36.0); MEAN PLATELET VOLUME 10.8 fL (7.9-10.8); MONOCYTES # (AUTO) 0.7 10^3/uL (0.0-1.0); MONOCYTES % (AUTO) 13.8 %; NEUTROPHILS # (AUTO) 2.9 10^3/uL (1.5-6.6); PLT - PLATELET COUNT 197 10^3/uL (130-450); RED BLOOD COUNT 4.34 10^6/uL (4.20-5.40); RED CELL DISTRIBUTION WIDTH 13.2 % (12.0-15.0); WHITE BLOOD COUNT 5.2 x10^3/uL (4.8-10.8)
[2022-07-31 16:07] LABS: CALCIUM 9.2 mg/dL (8.5-10.3); CREATININE 0.7 mg/dL (0.4-1.0); POTASSIUM 3.6 mmol/L (3.5-5.0)
== END 2022-07-31 15:44 | disposition home or self-care (01) ==
LOC: LAB 15:43
PROVIDERS: ATTEND Internal Medicine Cardiovascular Disease
DX: R06.09 Other forms of dyspnea (principal)
CPT/HCPCS: 36415; 80048; 85025; 85610

== ENCOUNTER 2022-11-19 16:04 | Outpatient (CLI) | payer MEDICARE, OTHER ==
[2022-11-19 17:06] LABS: BASOPHILS % (AUTO) 0.4 %; EOSINOPHILS % (AUTO) 0.2 %; HCT - HEMATOCRIT 44.4 % (37.0-47.0); HGB - HEMOGLOBIN 14.6 g/dL (12.0-16.0); LYMPHOCYTES # (AUTO) 1.2 10^3/uL (1.5-3.5); LYMPHOCYTES % (AUTO) 11.8 %; MEAN CORPUSCULAR HEMOGLOBIN 31.9 pg (27.0-31.0); MEAN CORPUSCULAR HGB CONC 32.9 g/dL (32.0-36.0); MEAN CORPUSCULAR VOLUME 96.9 fL (81.0-99.0); MEAN PLATELET VOLUME 10.8 fL (7.9-10.8); MONOCYTES # (AUTO) 0.5 10^3/uL (0.0-1.0); MONOCYTES % (AUTO) 5.2 %; NEUTROPHILS # (AUTO) 8.3 10^3/uL (1.5-6.6); NEUTROPHILS % (AUTO) 81.6 %; PLT - PLATELET COUNT 240 10^3/uL (130-450); RED BLOOD COUNT 4.58 10^6/uL (4.20-5.40); RED CELL DISTRIBUTION WIDTH 12.9 % (12.0-15.0); WHITE BLOOD COUNT 10.2 x10^3/uL (4.8-10.8)
[2022-11-19 17:15] LABS: BILIRUBIN,URINE NEGATIVE (NEGATIVE); GLUCOSE, URINE (UA) NEGATIVE (NEGATIVE); KETONES,URINE (UA) NEGATIVE (NEGATIVE); LEUKOCYTE ESTERASE, URINE NEGATIVE (NEGATIVE); NITRITE,URINE NEGATIVE (NEGATIVE); OCCULT BLOOD,URINE NEGATIVE (NEGATIVE); PROTEIN,URINE NEGATIVE (NEGATIVE); UROBILINOGEN,URINE 1 (NORMAL) E.U./dL (NORMAL)
[2022-11-19 17:22] LABS: ALBUMIN 4.1 g/dL (3.2-5.5); ALBUMIN/GLOBULIN RATIO 1.3 (1.0-2.2); ALKALINE PHOSPHATASE 86 IU/L (42-121); ALT ALANINE AMINOTRANSFERASE 20 IU/L (10-60); AST ASPARTATE AMINOTRANSFERASE 23 IU/L (10-42); BILIRUBIN,TOTAL 1.1 mg/dL (0.2-1.0); BUN - BLOOD UREA NITROGEN 21 mg/dL (6-20); CARBON DIOXIDE - CO2 24 mmol/L (21-32); CHLORIDE 97 mmol/L (101-111); CK- CREATINE KINASE 32 IU/L (22-269); CREATININE 0.7 mg/dL (0.4-1.0); GFR - MDRD 83 (>89); GLUCOSE 113 mg/dL (70-100); POTASSIUM 4.4 mmol/L (3.5-5.0); SODIUM 135 mmol/L (135-145); TOTAL PROTEIN 7.2 g/dL (6.7-8.2)
[2022-11-19 17:24] LABS: BACTERIA,URINE Many /HPF (None Seen); CLARITY,URINE CLEAR (CLEAR); RBC,URINE None Seen /HPF (0-5); SQUAMOUS EPITHELIAL CELL,UR MANY Squamous (<= Few); WBC,URINE 0-3 /HPF (0-5)
[2022-11-19 17:35] LABS: THYROID STIMULATING HORMONE 0.91 uIU/mL (0.34-5.60)
[2022-11-19 17:49] LABS: CRP - C-REACTIVE PROTEIN < 1.0 mg/dL (0-1.0)
[2022-11-19 19:22] LABS: RHEUMATOID FACTOR NEGATIVE (Negative)
== END 2022-11-19 16:05 | disposition home or self-care (01) ==
LOC: LAB 16:04
PROVIDERS: ATTEND Internal Medicine Rheumatology
DX: M25.50 Pain in unspecified joint (principal); R53.83 Other fatigue
CPT/HCPCS: 36415; 80053; 81001; 81599; 82550; 84443; 85025; 85651; 86038; 86140; 86200; 86430; 87086

== ENCOUNTER 2022-12-23 10:48 | Outpatient (CLI) | payer MEDICARE, OTHER ==
[2022-12-23 11:12] LABS: BASOPHILS % (AUTO) 0.9 %; EOSINOPHILS # (AUTO) 0.2 10^3/uL (0.0-0.7); EOSINOPHILS % (AUTO) 3.5 %; HCT - HEMATOCRIT 40.2 % (37.0-47.0); HGB - HEMOGLOBIN 13.6 g/dL (12.0-16.0); LYMPHOCYTES # (AUTO) 1.2 10^3/uL (1.5-3.5); LYMPHOCYTES % (AUTO) 27.4 %; MEAN CORPUSCULAR HEMOGLOBIN 32.9 pg (27.0-31.0); MEAN CORPUSCULAR HGB CONC 33.8 g/dL (32.0-36.0); MEAN CORPUSCULAR VOLUME 97.1 fL (81.0-99.0); MEAN PLATELET VOLUME 10.6 fL (7.9-10.8); MONOCYTES # (AUTO) 0.5 10^3/uL (0.0-1.0); MONOCYTES % (AUTO) 11.6 %; NEUTROPHILS # (AUTO) 2.4 10^3/uL (1.5-6.6); NEUTROPHILS % (AUTO) 56.1 %; PLT - PLATELET COUNT 170 10^3/uL (130-450); RED BLOOD COUNT 4.14 10^6/uL (4.20-5.40); RED CELL DISTRIBUTION WIDTH 13.6 % (12.0-15.0); WHITE BLOOD COUNT 4.3 x10^3/uL (4.8-10.8)
[2022-12-23 11:25] LABS: ALBUMIN 3.9 g/dL (3.2-5.5); ALBUMIN/GLOBULIN RATIO 1.3 (1.0-2.2); ALKALINE PHOSPHATASE 86 IU/L (42-121); ALT ALANINE AMINOTRANSFERASE 19 IU/L (10-60); AST ASPARTATE AMINOTRANSFERASE 28 IU/L (10-42); BILIRUBIN,TOTAL 0.9 mg/dL (0.2-1.0); BUN - BLOOD UREA NITROGEN 12 mg/dL (6-20); CALCIUM 8.7 mg/dL (8.5-10.3); CARBON DIOXIDE - CO2 25 mmol/L (21-32); CHLORIDE 104 mmol/L (101-111); CHOL/HDL RATIO 3.2 (<4.4); CHOLESTEROL 180 mg/dL; CREATININE 0.7 mg/dL (0.4-1.0); GFR - MDRD 83 (>89); GLUCOSE 107 mg/dL (70-100); HDL CHOLESTEROL 56 mg/dL; LDL CHOLESTEROL,CALCULATED 82 mg/dL; LDL/HDL RATIO 1.5 (<4.4); POTASSIUM 3.7 mmol/L (3.5-5.0); SODIUM 137 mmol/L (135-145); TRIGLYCERIDES 210 mg/dL; VLDL CHOLESTEROL 42 mg/dL
[2022-12-23 12:45] LABS: ESTIMATED AVERAGE GLUCOSE 105 mg/dL (70-100); HEMOGLOBIN A1c% 5.3 % (4.27-6.07)
[2022-12-23 16:14] LABS: THYROID STIMULATING HORMONE 3.92 uIU/mL (0.34-5.60)
== END 2022-12-23 10:49 | disposition home or self-care (01) ==
LOC: LAB 10:48
PROVIDERS: ATTEND Family Medicine
DX: M35.3 Polymyalgia rheumatica (principal); I25.10 Atherosclerotic heart disease of native coronary artery without angina pectoris; R03.0 Elevated blood-pressure reading, without diagnosis of hypertension; I26.99 Other pulmonary embolism without acute cor pulmonale; L40.50 Arthropathic psoriasis, unspecified; I34.0 Nonrheumatic mitral (valve) insufficiency
CPT/HCPCS: 36415; 80053; 80061; 83036; 83721; 84443; 85025

== ENCOUNTER 2023-01-29 11:13 | Outpatient (CLI) | payer MEDICARE, OTHER ==
--- NOTE | 2023-01-29 17:49 | XRAY Report ---
PROCEDURE: Lumbar Spine 2 View INDICATIONS: OSTEOARTHRITIS, SCIATICA LEFT TECHNIQUE: 3 views of the lumbar spine were acquired. COMPARISON: None. FINDINGS: Bones: 5 [id number] vertebrae are present. There is 1.2 cm anterolisthesis of L4 on L5. Loss of disc height, degenerative endplate changes and bilateral facet arthrosis throughout lumbar spine i s seen No vertebral body compression fractures. No suspicious bony lesions. Soft tissues: Overlying bowel gas pattern is normal. No suspicious soft tissue calcifications. IMPRESSION: 1.2 cm anterolisthesis of L4 on L5. Degenerative disc disease throughout lumbar spine mo re notably at L4-5 and L5-S1 levels. No acute compression fracture. Reviewed by: Ranjeet Jay MD on 01/29/2023 5:47 PM PDT Approved by: Ranjeet Jay MD on 01/29/2023 5:47 PM PDT Station ID: [id number]
== END 2023-01-29 11:14 | disposition home or self-care (01) ==
LOC: DI 11:13
PROVIDERS: ATTEND Physician Assistant
DX: M51.36 Other intervertebral disc degeneration, lumbar region (principal); M51.37 Other intervertebral disc degeneration, lumbosacral region; M43.16 Spondylolisthesis, lumbar region; M47.816 Spondylosis without myelopathy or radiculopathy, lumbar region

== ENCOUNTER 2023-05-09 15:01 | Outpatient (CLI) | payer MEDICARE, OTHER ==
--- NOTE | 2023-05-12 11:59 | Mammography Report ---
BILATERAL DIGITAL SCREENING MAMMOGRAM 3D/2D: 05/09/2023 CLINICAL: Routine screening. Comparison is made to exams dated: 04/04/2022 mammogram, 11/21/2020 mammogram, 09/10/2019 mammogram, mammogram, 03/14/2017 mammogram, and 11/20/2015 mammogram - [facility]. There are scattered areas of fibroglandular density in both breasts (category b / 25%-50% glandular t issue). No significant masses, calcifications, or other findings are seen in either breast. There has been no significant interval change. IMPRESSION: NEGATIVE There is no mammographic evidence of malignancy. A 1 year screening mammogram is recommended. Based on the Tyrer Cuzick model (a risk assessment model) the patients lifetime risk is 9.7% and her 10 year risk is 6.2%. According to the ACR, ACS, and NCCN guidelines, an annual breast MRI exam yen g with mammogram is recommended if the patients lifetime risk is 20% or greater. This exam was interpreted at Station ID: [id number]. NOTE: For mammograms, a report in lay terms will be sent to the patient. Approximately 15% of breast malignancies will not be visualized mammographically. In the management of a palpable breast mass, a negative mammogram must not discourage biopsy of a clinically suspicious lesion. Electronically Signed By: Sarai roland/emily:05/09/2023 15:50:31 letter sent: No_Letter ACR BI-RADS Category 1: Negative 3341F PARENCHYMAL PATTERN: (A) - The breast(s) demonstrate(s) scattered fibroglandular densities. BI-RADS CATEGORY: (1) - 1 Mammogram [id number] 1 year screening LATERALITY: (B)
== END 2023-05-09 15:02 | disposition home or self-care (01) ==
LOC: DI 15:01
DX: Z12.31 Encounter for screening mammogram for malignant neoplasm of breast (principal)

== ENCOUNTER 2023-07-26 15:52 | Outpatient (CLI) | payer MEDICARE, OTHER ==
[2023-07-26 16:28] LABS: BASOPHILS # (AUTO) 0.1 10^3/uL (0.0-0.1); BASOPHILS % (AUTO) 0.9 %; EOSINOPHILS # (AUTO) 0.1 10^3/uL (0.0-0.7); EOSINOPHILS % (AUTO) 2.6 %; HCT - HEMATOCRIT 45.3 % (37.0-47.0); HGB - HEMOGLOBIN 15.2 g/dL (12.0-16.0); LYMPHOCYTES # (AUTO) 1.2 10^3/uL (1.5-3.5); LYMPHOCYTES % (AUTO) 23.4 %; MEAN CORPUSCULAR HEMOGLOBIN 34.3 pg (27.0-31.0); MEAN CORPUSCULAR HGB CONC 33.6 g/dL (32.0-36.0); MEAN CORPUSCULAR VOLUME 102.3 fL (81.0-99.0); MEAN PLATELET VOLUME 11.1 fL (7.9-10.8); MONOCYTES # (AUTO) 0.7 10^3/uL (0.0-1.0); MONOCYTES % (AUTO) 12.6 %; NEUTROPHILS # (AUTO) 3.2 10^3/uL (1.5-6.6); NEUTROPHILS % (AUTO) 59.9 %; PLT - PLATELET COUNT 203 10^3/uL (130-450); RED BLOOD COUNT 4.43 10^6/uL (4.20-5.40); RED CELL DISTRIBUTION WIDTH 12.4 % (12.0-15.0); WHITE BLOOD COUNT 5.3 x10^3/uL (4.8-10.8)
[2023-07-26 18:02] LABS: ALBUMIN 4.2 g/dL (3.2-5.5); ALBUMIN/GLOBULIN RATIO 1.6 (1.0-2.2); ALKALINE PHOSPHATASE 104 IU/L (42-121); ALT ALANINE AMINOTRANSFERASE 36 IU/L (10-60); AST ASPARTATE AMINOTRANSFERASE 36 IU/L (10-42); BILIRUBIN,TOTAL 0.9 mg/dL (0.2-1.0); BUN - BLOOD UREA NITROGEN 13 mg/dL (6-20); CALCIUM 10.2 mg/dL (8.5-10.3); CARBON DIOXIDE - CO2 28 mmol/L (21-32); CHLORIDE 100 mmol/L (101-111); CHOL/HDL RATIO 4.1 (<4.4); CHOLESTEROL 239 mg/dL; CREATININE 0.8 mg/dL (0.6-1.3); GFR - MDRD 71 (>89); GLUCOSE 116 mg/dL (74-104); HDL CHOLESTEROL 59 mg/dL; LDL CHOLESTEROL,CALCULATED 147 mg/dL; LDL/HDL RATIO 2.5 (<4.4); POTASSIUM 4.1 mmol/L (3.5-4.5); SODIUM 137 mmol/L (135-145); TOTAL PROTEIN 6.8 g/dL (6.4-8.9); TRIGLYCERIDES 163 mg/dL (48-352); VLDL CHOLESTEROL 33 mg/dL
== END 2023-07-26 15:53 | disposition home or self-care (01) ==
LOC: LAB 15:52
PROVIDERS: ATTEND Family Medicine
DX: I34.0 Nonrheumatic mitral (valve) insufficiency (principal); R06.09 Other forms of dyspnea; E78.00 Pure hypercholesterolemia, unspecified; I10 Essential (primary) hypertension
CPT/HCPCS: 36415; 80053; 80061; 83721; 85025

== ENCOUNTER 2023-09-18 16:00 | Outpatient (CLI) | payer MEDICARE, OTHER ==
[2023-09-18 16:37] LABS: BASOPHILS # (AUTO) 0.1 10^3/uL (0.0-0.1); BASOPHILS % (AUTO) 0.9 %; EOSINOPHILS # (AUTO) 0.1 10^3/uL (0.0-0.7); EOSINOPHILS % (AUTO) 2.4 %; HCT - HEMATOCRIT 47.2 % (37.0-47.0); HGB - HEMOGLOBIN 15.9 g/dL (12.0-16.0); LYMPHOCYTES # (AUTO) 1.3 10^3/uL (1.5-3.5); LYMPHOCYTES % (AUTO) 22.9 %; MEAN CORPUSCULAR HEMOGLOBIN 34.3 pg (27.0-31.0); MEAN CORPUSCULAR HGB CONC 33.7 g/dL (32.0-36.0); MEAN CORPUSCULAR VOLUME 101.9 fL (81.0-99.0); MEAN PLATELET VOLUME 10.9 fL (7.9-10.8); MONOCYTES # (AUTO) 0.6 10^3/uL (0.0-1.0); MONOCYTES % (AUTO) 9.5 %; NEUTROPHILS # (AUTO) 3.7 10^3/uL (1.5-6.6); PLT - PLATELET COUNT 194 10^3/uL (130-450); RED BLOOD COUNT 4.63 10^6/uL (4.20-5.40); RED CELL DISTRIBUTION WIDTH 12.6 % (12.0-15.0); WHITE BLOOD COUNT 5.8 x10^3/uL (4.8-10.8)
[2023-09-18 16:50] LABS: CALCIUM 9.5 mg/dL (8.5-10.3); CREATININE 0.7 mg/dL (0.6-1.3)
[2023-09-18 16:54] LABS: PT - PROTHROMBIN TIME 11.3 secs (9.9-12.6)
== END 2023-09-18 16:01 | disposition home or self-care (01) ==
LOC: LAB 16:00
PROVIDERS: ATTEND Specialist
DX: I25.10 Atherosclerotic heart disease of native coronary artery without angina pectoris (principal); R06.02 Shortness of breath; I34.0 Nonrheumatic mitral (valve) insufficiency
CPT/HCPCS: 36415; 80048; 85025; 85610

== ENCOUNTER 2023-11-13 14:49 | Outpatient (CLI) | payer MEDICARE, OTHER ==
[2023-11-13 15:57] LABS: RHEUMATOID FACTOR NEGATIVE (Negative)
[2023-11-13 16:00] LABS: THYROID STIMULATING HORMONE 2.84 uIU/mL (0.34-5.60)
[2023-11-13 16:56] LABS: CK- CREATINE KINASE 45 IU/L (30-223); CRP - C-REACTIVE PROTEIN < 0.5 mg/dL (<0.5)
== END 2023-11-13 14:50 | disposition home or self-care (01) ==
LOC: LAB 14:49
PROVIDERS: ATTEND Internal Medicine Rheumatology
DX: M35.3 Polymyalgia rheumatica (principal); M25.50 Pain in unspecified joint
CPT/HCPCS: 36415; 82550; 84443; 85651; 86140; 86430

== ENCOUNTER 2023-11-24 08:00 | Outpatient (CLI) | payer MEDICARE, OTHER | END 2023-11-24 23:59 | disposition home or self-care (01) | LOC: LAB.R 08:00 | PROVIDERS: ATTEND Nurse Practitioner | DX: L30.9 Dermatitis, unspecified (principal) | CPT/HCPCS: 87070; 87077; 87101; 87181; 87205 ==

== ENCOUNTER 2024-04-05 08:00 | Outpatient (CLI) | payer MEDICARE, OTHER ==
[2024-04-06 12:12] LABS: BILIRUBIN,URINE NEGATIVE (NEGATIVE); GLUCOSE, URINE (UA) NEGATIVE (NEGATIVE); KETONES,URINE (UA) NEGATIVE (NEGATIVE); LEUKOCYTE ESTERASE, URINE NEGATIVE (NEGATIVE); NITRITE,URINE NEGATIVE (NEGATIVE); OCCULT BLOOD,URINE LARGE (NEGATIVE); PROTEIN,URINE 30 mg/dL (NEGATIVE); UROBILINOGEN,URINE 0.2 (NORMAL) E.U./dL (NORMAL)
[2024-04-06 12:22] LABS: CLARITY,URINE HAZY (CLEAR)
[2024-04-06 12:49] LABS: RBC,URINE TNTC /HPF (0-5); WBC,URINE 0-3 /HPF (0-5)
[2024-04-06 12:50] LABS: BACTERIA,URINE Rare /HPF (None Seen); SQUAMOUS EPITHELIAL CELL,UR RARE Squamous (<= Few)
== END 2024-04-05 23:59 | disposition home or self-care (01) ==
LOC: LAB 08:00
PROVIDERS: ATTEND Nurse Practitioner Family
DX: R10.9 Unspecified abdominal pain (principal); R31.9 Hematuria, unspecified; R30.0 Dysuria
CPT/HCPCS: 81001; 87086

== ENCOUNTER 2024-05-03 08:00 | Outpatient (CLI) | payer MEDICARE, OTHER ==
[2024-05-03 15:40] LABS: BILIRUBIN,URINE NEGATIVE (NEGATIVE); GLUCOSE, URINE (UA) NEGATIVE (NEGATIVE); KETONES,URINE (UA) NEGATIVE (NEGATIVE); LEUKOCYTE ESTERASE, URINE NEGATIVE (NEGATIVE); NITRITE,URINE POSITIVE (NEGATIVE); OCCULT BLOOD,URINE LARGE (NEGATIVE); PROTEIN,URINE TRACE mg/dL (NEGATIVE); UROBILINOGEN,URINE 0.2 (NORMAL) E.U./dL (NORMAL)
[2024-05-03 15:54] LABS: CLARITY,URINE CLOUDY (CLEAR)
[2024-05-03 16:01] LABS: AMORPHOUS SEDIMENT,UR Few /LPF; BACTERIA,URINE Few /HPF (None Seen); SQUAMOUS EPITHELIAL CELL,UR FEW Squamous (<= Few)
== END 2024-05-03 23:59 | disposition home or self-care (01) ==
LOC: LAB.S 08:00
PROVIDERS: ATTEND Nurse Practitioner Family
DX: Z87.440 Personal history of urinary (tract) infections (principal); R10.9 Unspecified abdominal pain; R31.9 Hematuria, unspecified; R30.0 Dysuria
CPT/HCPCS: 81001; 87086